=== PATIENT | female | born 1950 | race Caucasian/White ===

== ENCOUNTER 2016-07-31 15:17 | Emergency (ER) | payer MEDICARE, OTHER ==
[~2016-07-31] VITALS: Ht 157.4 cm; Wt 70.3 kg
[~2016-07-31 15:17] MED LIST: 'zithromax250 MG PO; AMBIEN5 MG PO; ASPIR LOW81 MG PO; B12,B-12,B 12500 MC1 PO; B12,B-12,B 12500 MCG PO; BACTRIM DS 8001 TA1 PO; BENADRYL50 MG PO; CARVEDILOL6.25 MG PO; DELTASONE10 MG PO; Duoneb 3ML 3 MG/3 ML INH; FLOVENT 110 M110 MCG INH; GLIPIZIDE XL5 M1 PO; GLIPIZIDE10 MG PO; GLYBURIDE2.5 MG PO; HYDR25T PO; HYDROCODONE BIT1 T11 PO; JANUVIA25 MG PO; KEFLEX500 MG PO; LIPITOR40 MG PO; LISINOPRIL2.5 MG PO; MEDROL DOSEPAK4 MG PO; METFORMIN500 MG PO; PRILOSEC40 MG PO; TROSPIUM CHLORI20 M1 PO; VICO75300 PO; VITAMIN D3400 UNIT PO; XANAX0.25 MG PO; ZOLOFT50 MG PO
[2016-07-31 15:25] VITALS: BP 124/80
[2016-07-31] MEDS ORDERED: PERCOCET 325 MG1 TA2 PO (15:27)
[2016-10-11] MEDS ORDERED: TROSPIUM CHLORI20 M1 PO (15:36)
[2016-10-11] MEDS ORDERED: POLLY-VITES1 CTB PO (15:37)
[2016-10-11] MEDS ORDERED: VRAYLAR1.5 MG PO (15:37)
[2016-10-11] MEDS ORDERED: PERCOCET 325 MG1 TA2 PO (15:39)
[2016-10-11] MEDS ORDERED: PYRIDIUM100 MG PO (16:59)
[2016-10-11] MEDS ORDERED: PERCOCET 325 MG1 TA1 PO (17:11)
== END 2016-07-31 15:30 | disposition home or self-care (01) ==
LOC: ED 15:17
DX: T22.112A Burn of first degree of left forearm, initial encounter (principal); T23.102A Burn of first degree of left hand, unspecified site, initial encounter; T23.172A Burn of first degree of left wrist, initial encounter; Z88.6 Allergy status to analgesic agent; Z79.82 Long term (current) use of aspirin; Z90.49 Acquired absence of other specified parts of digestive tract; Z90.710 Acquired absence of both cervix and uterus; X08.8XXA Exposure to other specified smoke, fire and flames, initial encounter; Y93.G3 Activity, cooking and baking; Y92.9 Unspecified place or not applicable; Y99.9 Unspecified external cause status

== ENCOUNTER 2017-06-05 23:51 | Inpatient (IN) | payer MEDICARE, OTHER ==
[~2017-06-05] VITALS: Ht 154.9 cm; Wt 91.8 kg
--- NOTE | ~2017-06-05 | EKG ---
[place], [place] ELECTROCARDIOGRAM REPORT NAME: SUDHIR BRICEÑO UNIT #: [id number] ROOM: 421 DOCTOR: AMISH POSADAS MD BIRTHDATE: [birth year] DOS: 06/07/2017 TIME: 1748 hours. Normal sinus rhythm at 78 beats per minute. An intraventricular conduction defect, most likely incomplete left bundle-branch block. Nonspecific T-wave changes in lateral leads. An abnormal ECG. No previous tracing is available for comparison. AMISH POSADAS MD CM:EKGRPT:ELECTROCARDIOGRAM REPORT [id number] AMISH POSADAS MD
--- NOTE | ~2017-06-05 | EKG ---
[place], [place] ELECTROCARDIOGRAM REPORT NAME: SUDHIR BRICEÑO UNIT #: [id number] ROOM: 421 DOCTOR: AMISH POSADAS MD BIRTHDATE: [birth year] DOS: 06/06/2017 TIME: 0018 hours. Normal sinus rhythm at 84 beats per minute. Mild left axis deviation. Incomplete left bundle-branch block. T-wave inversion in V3 to V6 is present with normal ST segments. This may be due to incomplete left bundle-branch block. No previous tracing is available for comparison. AMISH POSADAS MD CM:EKGRPT:ELECTROCARDIOGRAM REPORT [id number] 175 AMISH POSADAS MD
--- NOTE | ~2017-06-05 | PR ---
[place], [place] PROGRESS NOTE NAME: SUDHIR BRICEÑO UNIT #: [id number] ROOM: 421 DOCTOR: AMISH POSADAS MD BIRTHDATE: [birth year] DOS: 06/07/2017 SUBJECTIVE: This patient was seen by Dr. Arenas yesterday. She apparently had been shopping and all of a sudden had palpitations where her heart was racing. She became weak and dizzy and was sweating. She did not have any chest pain or shortness of breath. She waited for a while, feeling did not go away and came to the Emergency Department where she was said to be in some form of supraventricular tachycardia. I do not have any EKGs or rhythm strips from ER to determine what had happened. She was treated with IV Cardizem and converted to normal sinus rhythm and she has remained that away. One rhythm strip here shows regular tachycardia with interventricular conduction defect almost suggestive of atrial fibrillation. She had never had any palpitations previously, but had been feeling weak and tired for about a month or so ago. PHYSICAL EXAMINATION GENERAL: The patient is very pleasant, alert and oriented. She is comfortable. VITAL SIGNS: Pulse is regular at 80, blood pressure ____. NECK: JVP is normal. LUNGS: She has crackles in both lungs (she has COPD). EXTREMITIES: No edema in the lower extremities. LABORATORY DATA: Monitor shows normal sinus rhythm. An echocardiogram done yesterday showed an EF of 50%, normal chamber sizes and no valvular abnormality. IMPRESSION: This patient has supraventricular tachycardia whether this was atrial fibrillation is not clear. I do not have ECG or rhythm strip from the ER available and none are in the chart that are being tracked. She had normal coronary arteries about 3-4 years ago. She reminded me that I had done a diagnostic heart catheterization on her with selective coronary angiogram. An ECG done yesterday showed T-wave inversion in many ____ rather ECG done now showed flattened T waves. Troponin I was 0.2 or so, which I think was probably result of tachycardia, i.e., type 2 myocardial infarction rather than from conclusion of coronary artery. She was ambulated and was asymptomatic. From cardiac standpoint, she may be discharged home. I would like to see her in the office in about 2-4 weeks. [place], [place] PROGRESS NOTE NAME: SUDHIR BRICEÑO UNIT #: [id number] ROOM: 421 DOCTOR: AMISH POSADAS MD BIRTHDATE: [birth year] AMISH POSADAS MD CM:PNTRANS 175 [id number] AMISH POSADAS MD 06/08/17 0458 interface
--- NOTE | ~2017-06-05 | CON ---
[place], [place] REPORT OF CONSULTATION NAME: SUDHIR BRICEÑO UNIT #: [id number] ROOM: 421 DOCTOR: RICKY FELDERLEONEL BIRTHDATE: [birth year] DOS: 06/06/2017 HISTORY OF PRESENT ILLNESS: The patient is a 67-year-old obese female with a history of longstanding diabetes who apparently follows up with Dr. Suárez. The patient had a stress test a year and two ago and Dr. Suárez and was reported normal. Also had a heart catheterization by Dr. Morales 3 years ago and was normal. The patient came in with significant hyperglycemia and also had an episode of supraventricular tachycardia, treated with the Cardizem and she is on a Cardizem drip at 5 and patient is back into sinus rhythm. The patient denies any chest discomfort, shortness of breath, palpitations. Hemodynamically appears to be stable. The patient is staying in sinus rhythm at this point. She is very hesitant about any heart catheterization or any aggressive interventions. She has a history of longstanding diabetes, hypertension and hyperlipidemia. Right now she feels fine and she is in sinus rhythm. PAST MEDICAL HISTORY: Anxiety, depression, diabetes, fibromyalgia, obesity. SOCIAL HISTORY: Prior tobacco abuse. SURGICAL HISTORY: , carpal tunnel surgery, hysterectomy and tonsillectomy. FAMILY HISTORY: Positive for coronary artery disease. ALLERGIES: CODEINE. HOME MEDICATIONS: Aspirin, hydrochlorothiazide, lisinopril, Januvia, VESIcare, and Ambien. REVIEW OF SYSTEMS: CONSTITUTIONAL: No fever, no chills. HEENT: No visual disturbances or hearing problems. CARDIOVASCULAR: As per HPI. GASTROINTESTINAL: No nausea, no vomiting. GENITOURINARY: No dysuria, hematuria. NEUROLOGIC: Stable. PHYSICAL EXAMINATION: VITAL SIGNS: Blood pressure is 130/70. The patient is in sinus rhythm. HEENT: Unremarkable. NECK: Supple, no JVD. LUNGS: Clear. HEART: Sounds are regular. NEUROLOGIC: Stable. LABORATORY DATA: Shows sodium 139, potassium 4.3, creatinine is 1.4. Liver functions are normal. Troponins 0.089, hemoglobin 12.9, hematocrit 40.2. Chest x-ray was normal. IMPRESSION: An episode of supraventricular tachycardia, diabetes, hypertension, [place], [place] REPORT OF CONSULTATION NAME: SUDHIR BRICEÑO UNIT #: [id number] ROOM: 421 DOCTOR: LEONEL GARCÍA MD BIRTHDATE: [birth year] hyperlipidemia, renal insufficiency. RECOMMENDATIONS: Agree with the present management. Add small dose of beta blockers with metoprolol 25 b.i.d., wean off the Cardizem drip. So, we will review the echocardiogram. Continue the other medications and I will follow up. LEONEL GARCÍA MD CM:CONSTR:REPORT OF CONSULTATION 0551 06/06/17 0827 interface
[~2017-06-05 23:51] MED LIST changes: +PERCOCET 325 MG1 TA1 PO; +PERCOCET 325 MG1 TA2 PO; +POLLY-VITES1 CTB PO; +PYRIDIUM100 MG PO; +VRAYLAR1.5 MG PO
[2017-06-05 23:56] VITALS: BP 114/76
[2017-06-06] VITALS (8 sets, daily range): BP systolic 99–154; BP diastolic 54–89
[2017-06-06 00:21] LABS: HEMATOCRIT 40.2 % (37.0-47.0); HEMOGLOBIN 12.9 g/dl (12.0-16.0); MEAN CELL VOLUME 90.7 fl (81.0-99.0); MEAN CORPUSCULAR HGB 29.1 pg (27.0-31.0); MEAN CORPUSCULAR HGB CONC 32.1 g/dl (33.0-37.0); MEAN PLATELET VOLUME 11.7 fl (9.6-12.3); PLATELET COUNT AUTOMATED 324 10*3/uL (130-400); RED BLOOD COUNT 4.43 10*6/uL (4.10-5.10); RED CELL DISTRI WIDTH 13.3 % (0-14.5); WHITE BLOOD COUNT 17.4 10*3/uL (4.8-10.8)
[2017-06-06 00:38] LABS: PLATELET SUFFICIENCY NORMAL (NORMAL); TOTAL CELLS COUNTED 100 #CELLS
[2017-06-06 00:40] LABS: ALBUMIN 3.5 gm/dl (3.1-4.5); CREATININE 1.4 mg/dL (0.55-1.02); POTASSIUM 4.3 mmol/L (3.5-5.1); TOTAL PROTEIN 6.7 gm/dL (6.4-8.2)
[2017-06-06 00:41] LABS: TROPONIN I 0.037 ng/ml (<0.045)
[2017-06-06 00:47] LABS: THYROID STIM HORMONE (HS) 1.63 uIU/ml (0.358-4.75)
--- NOTE | 2017-06-06 02:00 | NUR ---
A 67, admitted to 4E, under the services of DAISY Giraldo DO with a diagnosis of . Chief complaint is SUSTAINED SVT. Patient arrived via ambulance from ER. Monitor applied. Initial assessment completed. Vital signs taken and recorded. DAISY GIRALDO DO notified of admission to the unit. Orders received. See assessment for past medical history, medications and allergies. Patient and/or family oriented to unit. visitation policy reviewed. Clothing/patient valuable form completed. PRAKASH GORDON L
[2017-06-06] MEDS ORDERED: VESICARE10 MG PO (02:21)
[2017-06-06] MEDS ORDERED: HYDROXYZINE PAM25 MG PO (02:23)
[2017-06-06] MEDS ORDERED: CYMBALTA20 M1 PO (02:25)
--- NOTE | 2017-06-06 02:28 | NUR ---
MED REC UP TO DATE WITH PT MEDICATION BOTTLES BROUGHT IN FROM HOME. MEDS SENT TO PHARMACY
--- NOTE | 2017-06-06 02:45 | NUR ---
RESIDENT NOTIFIED OF CRITICAL LACTIC ACID, ALSO NOTIFIED THAT MED REQ UPDATED
--- NOTE | 2017-06-06 03:40 | NUR ---
CALL PLACED TO DR POSADAS PER DR KENNEY REQUEST, SPOKE WITH KATHARINA R/T CARDIZEM DRIP AND IF HE WOULD LIKE PT TO BE PLACED ON DRIP ORDERED IN ER, UPDATED DR POSADAS ON PTS CONDITION ALSO NOTIFIED THAT PT IS AND HAS BEEN IN NSR SINCE BOLUS OF CARDIZEM IN ER, NEW ORDER TO RUN CARDIZEM 5MG/HR AND TO HAVE A ECHO SCHEDULED WELL
--- NOTE | 2017-06-06 03:43 | NUR ---
NOTIFIED DR.A CHRISTIANSEN OF ELEVATED TROPININ LEVEL
--- NOTE | 2017-06-06 05:12 | NUR ---
LAB CALLED CRITICAL LACTIC ACID 2.[address] AZUL AWARE. NO NEW ORDERS RECEIVED
[2017-06-06 05:39] LABS: ALBUMIN 3.3 gm/dl (3.1-4.5); ALKALINE PHOSPHATASE 65 U/L (45-117); BUN 27 mg/dl (7-24); CHLORIDE 103 mmol/L (98-107); CHOLESTEROL 206 mg/dL (<200); CREATININE 0.87 mg/dL (0.55-1.02); FREE T4 1.05 ng/dl (0.76-1.46); HDL CHOLESTEROL 40 mg/dl (40-60); LDL CHOLESTEROL 126 mg/dL (9-159); PHOSPHOROUS 4.1 mg/dL (2.5-4.9); POTASSIUM 3.7 mmol/L (3.5-5.1); SGOT/AST 56 IU/L (3-35); SGPT/ALT 51 U/L (12-78); SODIUM 138 mmol/L (136-145); TOTAL PROTEIN 6.4 gm/dL (6.4-8.2); TRIGLYCERIDES 200 mg/dl (<150); VLDL CHOLESTEROL 40 mg/dL (6-40)
--- NOTE | 2017-06-06 05:59 | NUR ---
DR. TOMPKINS IN TO SEE PT AT THIS TIME STATES TO START PT ON METOPROLOL 25MG PO BID AND TO START WEANING PT OFF CARDIZEM HALEY
[2017-06-06 06:04] LABS: BASO # 0.1 10*3/uL (0.0-0.1); BASO % 0.5 % (0.0-1.0); EOS % 0.3 % (1.0-4.0); HEMATOCRIT 37.9 % (37.0-47.0); HEMOGLOBIN 12.3 g/dl (12.0-16.0); LYMPH # 2.6 10*3/uL (1.3-4.4); LYMPH % 18.7 % (27.0-41.0); MEAN CELL VOLUME 89.2 fl (81.0-99.0); MEAN CORPUSCULAR HGB 28.9 pg (27.0-31.0); MEAN CORPUSCULAR HGB CONC 32.5 g/dl (33.0-37.0); MEAN PLATELET VOLUME 12.4 fl (9.6-12.3); MONO # 0.9 10*3/uL (0.1-1.0); MONO % 6.6 % (3.0-9.0); NEUT # 10.2 10*3/uL (2.3-7.9); NEUT % 72.6 % (47.0-73.0); PLATELET COUNT AUTOMATED 293 10*3/uL (130-400); RED BLOOD COUNT 4.25 10*6/uL (4.10-5.10); RED CELL DISTRI WIDTH 13.7 % (0-14.5)
[2017-06-06 06:13] LABS: ACT PARTIAL THROMBO TIME 21.9 SECONDS (20.8-31.5)
[2017-06-06 06:33] LABS: VITAMIN D, 25-HYDROXY 20.1 ng/mL (30-100)
--- NOTE | 2017-06-06 06:36 | NUR ---
CALL PLACED TO DR TOMPKINS R/T PT TROPONIN LEVELS, NO NEW ORDERS AT THIS TIME
--- NOTE | 2017-06-06 10:30 | NUR ---
DR GARCÍA CALLED TO REPORT CRITICAL TROPONIN OF 0.[address] STATED HE WOULD LET DR POSADAS KNOW.
--- NOTE | 2017-06-06 10:32 | NUR ---
CARDIZEM DRIP DISCONTINUED PER DR GARCÍA.
[2017-06-06 14:06] LABS: BILIRUBIN NEGATIVE (NEGATIVE); BLOOD TRACE-INTACT (NEGATIVE); CLARITY SL CLOUDY (CLEAR); COLOR YELLOW (YELLOW); GLUCOSE NEGATIVE (NEGATIVE); KETONE NEGATIVE (NEGATIVE); LEUKO ESTERASE 1+ (NEGATIVE); NITRITE POSITIVE (NEGATIVE); SPECIFIC GRAVITY 1.025 (1.005-1.030); UROBILINOGEN 0.2 E.U./dl (0.2-1.0)
--- NOTE | 2017-06-06 14:21 | NUR ---
ATTEMPTED TO CALL DR POSADAS WITH CRITICAL TROPONIN. BOTH ANSWERING SERVICE AND CELL PHONE CALLED, NO ANSWER . LEVEL IS IMPROVING , WILL ATTEMPT TO CALL AGAIN SHORTLY.
[2017-06-06 14:24] LABS: BACTERIA 2+; WBC TNTC wbc/hpf (0-5)
--- NOTE | 2017-06-06 19:30 | NUR ---
PA REPORTED TO RN THAT PT HAD O2 OFF AND SPO2 ON RA WAS 79%. O2 PLACED BACK ON PT, SPO2 94% ON 3LPM VIA NC. PT ADMITS THAT SHE REMOVES O2 AT WILL. RN PROVIDED EXTENSION TUBING AND ENCOURAGED PT TO LEAVE O2 ON. PT VOICED UNDERSTANDING.
[2017-06-07] VITALS: BP 101/77
[2017-06-07 08:00] VITALS: BP 142/78
--- NOTE | 2017-06-07 08:20 | NUR ---
PT SITTING UP AT SIDE OF BED EATING BREAKFAST. PT DENIES ANY COMPLAINTS, STATES SHE IS READY TO GO HOME, EXPLAINED WE HAVE TO WAIT TO HEAR FROM THE DOCTOR. PT VOICED UNDERSTANDING. PT IN NO DISTRESS, O2 MAINTAINED AT 2L NC, NO SOB NOTED, LUNGS DIMINISHED. PT DENIES ANY PAIN. CALL LIGHT WITHIN REACH.
--- NOTE | 2017-06-07 09:00 | NUR ---
Polishing Pad Mounter in to talk to patient. Patient states lives at home with alone. There are few steps in the home. Physician: alex rizo Pharmacy: Home health services: none Patient's level of ADLs: INDEPENDENT Patient has working utilities: all working DME: home oxygen and portable tanks from [facility] Follow-up physician's appointment after d/c: will be made by hospitalist nurse director upon discharge Does patient want to access PORTAL?: no Discharge plan discussed with patient, patient lives at home alone, states she is independent in adls and ambulation, patient states she will be going back home and denies any home needs, case management will follow. TESFAYE CHANDLER
--- NOTE | 2017-06-07 10:44 | NUR ---
SOAKING PIT OPERATOR REMOVED AT THIS TIME PER ORDER.
[2017-06-07 12:00] VITALS: BP 125/62
--- NOTE | 2017-06-07 12:37 | NUR ---
DR CORTES NOTIFIED OF URINE CULTURE POSITIVE FOR HEAVY GNB AND PT NOT CURRENTLY ON ANY ANTIBIOTICS.
[2017-06-07 16:00] VITALS: BP 126/62
--- NOTE | 2017-06-07 17:57 | NUR ---
DR POSADAS HERE TO SEE PT, STAT EKG ORDERED AT THIS TIME. ORDERED TO WALK PT IN [place] TO SEE HOW SHE DOES, WALKED PT UP [place], STATES SHE FELT OK JUST TIRED AND MINIMALLY SOB. DR POSADAS UPDATED. STATES FROM HIS STANDPOINT SHE COULD GO HOME, HE UPDATED DR CORTES.
--- NOTE | 2017-06-07 19:20 | NUR ---
PT CALLED ME INTO ROOM AT THIS TIME ASKING WHERE DR POSADAS WAS, EXPLAINED TO HER THAT HE WAS FINISHING HIS ROUNDS. PT ASKING WHY HE DIDN'T TELL HER ANYTHING, EXPLAINED TO HER THAT I'M SURE IT WAS JUST AN OVERSIGHT BUT HE DID SPEAK WITH HER ATTENDING AND UPDATED THEM ON HER CARE. STATING FROM HIS STANDPOINT SHE IS OK FOR DISCHARGE. PT UPSET STATING SHE WANTS TO LEAVE. EXPLAINED TO HER THAT THE PLAN IS FOR HER TO BE DISCHARGED. PT SETTLED DOWN AT THIS TIME AND AGREES TO STAY, BUT STATES SHE DOES WANT TO SPEAK WITH SOMEONE REGARDING THIS. NURSING USER EXPERIENCE ARCHITECT NOTIFIED.
[2017-06-07 20:00] VITALS: BP 143/73
--- NOTE | 2017-06-07 20:00 | NUR ---
PATIENT ANXIOUS AND TEARFUL C/O DR. POSADAS NOT RETURNING TO DISCUSS PLAN OF CARE PRIOR TO COMPLETING ROUNDS. NURSING FIRE OBSERVER EVANGELINA INIGUEZ, ROSEMARIE PERSAUD RN, AND MYSELF AT BEDSIDE PROVIDING ROUTINE NURSING COMFORT. PATIENT AGREES TO STAY FOR THE NIGHT AND ASKING ABOUT BEING DISCHARGED EARLY TOMORROW. PATIENT INFORMED HOSPITALIST WILL BE DOING ROUNDS AND WILL SEE PATIENT IN THE MORNING, PATIENT VERBALIZES UNDERSTANDING AND STATES FEELING MUCH BETTER AFTER VENTING. PATIENT ENCOURAGED TO CALL FOR ADDITIONAL ASSISTANCE. PRAKASH LARA RN
[2017-06-08] VITALS: BP 134/77
[2017-06-08 04:00] VITALS: BP 130/78
[2017-06-08 06:11] LABS: BASO # 0.1 10*3/uL (0.0-0.1); BASO % 0.6 % (0.0-1.0); EOS # 0.2 10*3/uL (0.0-0.4); EOS % 2.3 % (1.0-4.0); HEMATOCRIT 35.7 % (37.0-47.0); HEMOGLOBIN 11.5 g/dl (12.0-16.0); LYMPH # 3.2 10*3/uL (1.3-4.4); LYMPH % 34.6 % (27.0-41.0); MEAN CORPUSCULAR HGB 28.7 pg (27.0-31.0); MEAN CORPUSCULAR HGB CONC 32.2 g/dl (33.0-37.0); MONO # 0.7 10*3/uL (0.1-1.0); MONO % 7.7 % (3.0-9.0); NEUT % 53.8 % (47.0-73.0); PLATELET COUNT AUTOMATED 249 10*3/uL (130-400); RED BLOOD COUNT 4.01 10*6/uL (4.10-5.10); RED CELL DISTRI WIDTH 13.2 % (0-14.5); WHITE BLOOD COUNT 9.3 10*3/uL (4.8-10.8)
[2017-06-08 06:27] LABS: BUN 17 mg/dl (7-24); CHLORIDE 100 mmol/L (98-107); CREATININE 0.62 mg/dL (0.55-1.02); POTASSIUM 3.8 mmol/L (3.5-5.1); SODIUM 141 mmol/L (136-145)
[2017-06-08 08:00] VITALS: BP 156/74
--- NOTE | 2017-06-08 09:00 | NUR ---
case management visits with patient, patient states she is going home, discussed with her VNA and she refused any home services
[2017-06-08] MEDS ORDERED: LOPRESSOR25 MG PO (10:09)
[2017-06-08] MEDS ORDERED: SEPTDS PO (10:10)
--- NOTE | 2017-06-08 12:03 | NUR ---
Discharge instructions reviewed with patient/family. Patient receptive and verbalizes understanding. Follow-up care arranged. Written instructions given to patient/family. TAMERA DE LA ROSA
== END 2017-06-08 12:03 | disposition home or self-care (01) | DRG 308 ==
LOC: ED 23:51 → 4E 06-06 01:36
PROVIDERS: Emergency Medicine Emergency Medical Services; Internal Medicine; ADMIT Internal Medicine
DX: I47.1 Supraventricular tachycardia (principal); N17.0 Acute kidney failure with tubular necrosis; J96.11 Chronic respiratory failure with hypoxia; R65.10 Systemic inflammatory response syndrome (SIRS) of non-infectious origin without acute organ dysfunction; Z99.81 Dependence on supplemental oxygen; F03.90 Unspecified dementia, unspecified severity, without behavioral disturbance, psychotic disturbance, mood disturbance, and anxiety; N39.0 Urinary tract infection, site not specified; J43.9 Emphysema, unspecified; F41.9 Anxiety disorder, unspecified; F32.9 Major depressive disorder, single episode, unspecified; E78.5 Hyperlipidemia, unspecified; I10 Essential (primary) hypertension; Z96.653 Presence of artificial knee joint, bilateral; R74.8 Abnormal levels of other serum enzymes; R74.0 Nonspecific elevation of levels of transaminase and lactic acid dehydrogenase [LDH]; M79.7 Fibromyalgia; K27.9 Peptic ulcer, site unspecified, unspecified as acute or chronic, without hemorrhage or perforation; R32 Unspecified urinary incontinence; E53.8 Deficiency of other specified B group vitamins; D64.9 Anemia, unspecified; G47.00 Insomnia, unspecified; E66.09 Other obesity due to excess calories; E55.9 Vitamin D deficiency, unspecified; K21.9 Gastro-esophageal reflux disease without esophagitis; Z82.3 Family history of stroke; Z80.9 Family history of malignant neoplasm, unspecified; Z82.49 Family history of ischemic heart disease and other diseases of the circulatory system; Z88.8 Allergy status to other drugs, medicaments and biological substances; Z68.34 Body mass index [BMI] 34.0-34.9, adult; Z88.6 Allergy status to analgesic agent; Z79.899 Other long term (current) drug therapy; Z83.3 Family history of diabetes mellitus; Z87.891 Personal history of nicotine dependence; Z90.49 Acquired absence of other specified parts of digestive tract; Z90.710 Acquired absence of both cervix and uterus; E11.65 Type 2 diabetes mellitus with hyperglycemia; Z79.84 Long term (current) use of oral hypoglycemic drugs

== ENCOUNTER 2017-08-14 15:10 | Inpatient (IN) | payer MEDICARE, OTHER ==
[~2017-08-14] VITALS: Ht 154.9 cm; Wt 86.7 kg
--- NOTE | ~2017-08-14 | CON ---
[place], [place] REPORT OF CONSULTATION NAME: SUDHIR BRICEÑO UNIT #: [id number] ROOM: 401 DOCTOR: LEONEL GARCÍA MD BIRTHDATE: [birth year] DOS: 08/15/2017 ADDENDUM I just did the consultation. I was given wrong information that the patient had renal transplant and also bypass. Unfortunately, she did not have that. I examined the patient and I discussed with her in detail. She had two heart catheterizations showed minimal coronary artery disease. She had a stress test done in May, which was basically normal. So, the recommendations would be to increase the metoprolol to 50 b.i.d. Continue the other medications. Monitor the heart rate and blood pressure closely. She has suggestion of early sick sinus syndrome and I will closely followup. As mentioned, she did not have bypass surgery. She had two heart catheterizations with minimal disease. LEONEL GARCÍA MD CM:CONSTR:REPORT OF CONSULTATION 0757 08/15/17 0824 interface
--- NOTE | ~2017-08-14 | CON ---
[place], [place] REPORT OF CONSULTATION NAME: SUDHIR BRICEÑO UNIT #: [id number] ROOM: 401 DOCTOR: LEONEL GARCÍA MD BIRTHDATE: [birth year] DOS: 08/15/2017 REASON FOR CONSULTATION: Supraventricular tachycardia. HISTORY OF PRESENT ILLNESS: The patient is very well known to me. A 67-year-old female with sick sinus syndrome, paroxysmal atrial fibrillation, admitted with significant palpitation, was found to be in SVT, was given Adenocard and the patient back into sinus rhythm. The patient has a history of paroxysmal atrial fibrillation and she was in sinus rhythm with the medications. She has been by electrophysiology also in the past because of the sick sinus syndrome. PAST MEDICAL HISTORY: Significant for coronary artery disease, COPD, sick sinus syndrome, gastroesophageal reflux disease, peptic ulcer disease, tobacco abuse. PAST SURGICAL HISTORY: Knee replacement, cardiac catheterization, tonsillectomy, and hysterectomy. SOCIAL HISTORY: Does not drink or use any drugs. Former smoker. FAMILY HISTORY: Positive for coronary artery disease. ALLERGIES: HYDROCODONE AND CODEINE. HOME MEDICATIONS: Aspirin, lisinopril, metformin, metoprolol, and omeprazole. REVIEW OF SYSTEMS: CONSTITUTIONAL: No fever, no chills. HEENT: No visual disturbances or hearing problems. CARDIOVASCULAR: As per HPI. GASTROINTESTINAL: No nausea, no vomiting. GENITOURINARY: No dysuria or hematuria. NEUROLOGICALLY: Stable. PHYSICAL EXAMINATION: VITAL SIGNS: Blood pressure is 128/97, pulse is 96. NECK: Supple, no JVD. LUNGS: Diminished breath sounds. HEART: Sounds are regular, slightly tachycardic. NEUROLOGIC: Stable. LABORATORY DATA: Sodium 134, potassium 4.1, BUN and creatinine 10 and 1.1. Hemoglobin 13.5, hematocrit 42.1. EKG sinus tachycardia with nonspecific ST-T changes. IMPRESSION: Supraventricular tachycardia, sick sinus syndrome, diabetes, hypertension, hyperlipidemia, coronary artery disease. RECOMMENDATIONS: Increase the beta blockers to 50 b.i.d. Monitor the heart rate very closely. Continue the other medications as ordered. Continue all [place], [place] REPORT OF CONSULTATION NAME: SUDHIR BRICEÑO UNIT #: [id number] ROOM: 401 DOCTOR: RICKY FELDER,LEONEL BIRTHDATE: [birth year] other home medications. The patient monitors the pressure also and I will follow up. ADDENDUM I just did the consultation. I was given wrong information that the patient had renal transplant and also bypass. Unfortunately, she did not have that. I examined the patient and I discussed with her in detail. She had two heart catheterizations showed minimal coronary artery disease. She had a stress test done in May, which was basically normal. So, the recommendations would be to increase the metoprolol to 50 b.i.d. Continue the other medications. Monitor the heart rate and blood pressure closely. She has suggestion of early sick sinus syndrome and I will closely followup. As mentioned, she did not have bypass surgery. She had two heart catheterizations with minimal disease. LEONEL GARCÍA MD CM:CONSTR:REPORT OF CONSULTATION 0738 08/15/17 0941 interface
[~2017-08-14 15:10] MED LIST changes: +CYMBALTA20 M1 PO; +HYDROXYZINE PAM25 MG PO; +LOPRESSOR25 MG PO; +SEPTDS PO; +VESICARE10 MG PO
[2017-08-14 15:15] VITALS: BP 116/58
[2017-08-14 15:20] VITALS: BP 116/58
[2017-08-14 15:39] LABS: BASO # 0.1 10*3/uL (0.0-0.1); BASO % 0.4 % (0.0-1.0); EOS # 0.1 10*3/uL (0.0-0.4); EOS % 0.4 % (1.0-4.0); HEMATOCRIT 42.1 % (37.0-47.0); HEMOGLOBIN 13.5 g/dl (12.0-16.0); LYMPH # 0.7 10*3/uL (1.3-4.4); LYMPH % 5.4 % (27.0-41.0); MEAN CELL VOLUME 89.2 fl (81.0-99.0); MEAN CORPUSCULAR HGB 28.6 pg (27.0-31.0); MEAN CORPUSCULAR HGB CONC 32.1 g/dl (33.0-37.0); MEAN PLATELET VOLUME 11.8 fl (9.6-12.3); MONO # 0.5 10*3/uL (0.1-1.0); MONO % 4.1 % (3.0-9.0); NEUT # 11.3 10*3/uL (2.3-7.9); NEUT % 88.9 % (47.0-73.0); PLATELET COUNT AUTOMATED 273 10*3/uL (130-400); RED BLOOD COUNT 4.72 10*6/uL (4.10-5.10); RED CELL DISTRI WIDTH 13.2 % (0-14.5); WHITE BLOOD COUNT 12.7 10*3/uL (4.8-10.8)
[2017-08-14 15:46] VITALS: BP 122/65
[2017-08-14 15:48] LABS: ACT PARTIAL THROMBO TIME 27.1 SECONDS (20.8-31.5)
[2017-08-14 15:56] LABS: ALBUMIN 3.4 gm/dl (3.1-4.5); ALKALINE PHOSPHATASE 101 U/L (45-117); BUN 10 mg/dl (7-24); CHLORIDE 97 mmol/L (98-107); CREATININE 1.14 mg/dL (0.55-1.02); POTASSIUM 4.1 mmol/L (3.5-5.1); SGOT/AST 67 IU/L (3-35); SGPT/ALT 61 U/L (12-78); SODIUM 134 mmol/L (136-145)
[2017-08-14 15:59] LABS: TROPONIN I < 0.015 ng/ml (<0.045)
[2017-08-14 16:01] VITALS: BP 125/61
[2017-08-14 16:37] VITALS: BP 128/57
[2017-08-14 20:00] VITALS: BP 135/68
[2017-08-15] VITALS: BP 137/54
[2017-08-15 07:27] LABS: BASO % 0.6 % (0.0-1.0); EOS % 0.1 % (1.0-4.0); HEMOGLOBIN 12.2 g/dl (12.0-16.0); LYMPH % 14.5 % (27.0-41.0); MEAN CELL VOLUME 90.3 fl (81.0-99.0); MEAN CORPUSCULAR HGB CONC 32.1 g/dl (33.0-37.0); MEAN PLATELET VOLUME 11.6 fl (9.6-12.3); MONO # 0.7 10*3/uL (0.1-1.0); MONO % 10.9 % (3.0-9.0); NEUT # 4.9 10*3/uL (2.3-7.9); NEUT % 73.5 % (47.0-73.0); PLATELET COUNT AUTOMATED 227 10*3/uL (130-400); RED BLOOD COUNT 4.21 10*6/uL (4.10-5.10); RED CELL DISTRI WIDTH 13.6 % (0-14.5); WHITE BLOOD COUNT 6.7 10*3/uL (4.8-10.8)
[2017-08-15 07:57] LABS: BUN 11 mg/dl (7-24); CHLORIDE 103 mmol/L (98-107); POTASSIUM 3.8 mmol/L (3.5-5.1); SGOT/AST 80 IU/L (3-35); SGPT/ALT 70 U/L (12-78); SODIUM 140 mmol/L (136-145)
[2017-08-15 08:00] VITALS: BP 149/65
[2017-08-15 08:05] LABS: ALKALINE PHOSPHATASE 75 U/L (45-117); CHOLESTEROL 98 mg/dL (<200); CREATININE 0.58 mg/dL (0.55-1.02); FREE T4 1.27 ng/dl (0.76-1.46); HDL CHOLESTEROL 45 mg/dl (40-60); LDL CHOLESTEROL 36 mg/dL (9-159); PHOSPHOROUS 2.7 mg/dL (2.5-4.9); THYROID STIM HORMONE (HS) 0.628 uIU/ml (0.358-4.75); TOTAL PROTEIN 6.2 gm/dL (6.4-8.2); TRIGLYCERIDES 83 mg/dl (<150); VLDL CHOLESTEROL 17 mg/dL (6-40)
[2017-08-15 08:19] LABS: VITAMIN D, 25-HYDROXY 16.3 ng/mL (30-100)
[2017-08-15 12:00] VITALS: BP 129/48
[2017-08-15 16:00] VITALS: BP 128/59
[2017-08-15 20:00] VITALS: BP 112/52
[2017-08-16] VITALS: BP 140/67
[2017-08-16 08:00] VITALS: BP 114/70
[2017-08-16] MEDS ORDERED: METOPROLOL TART50 M1 PO (09:10)
== END 2017-08-16 12:29 | disposition home or self-care (01) | DRG 309 ==
LOC: ED 15:10 → 4E 15:33 → EDHOLD 15:33 → 4E 16:09
PROVIDERS: Registered Nurse; Student in an Organized Health Care Education/Training Program
DX: I47.1 Supraventricular tachycardia (principal); E87.2 Acidosis; E44.0 Moderate protein-calorie malnutrition; J96.10 Chronic respiratory failure, unspecified whether with hypoxia or hypercapnia; I49.5 Sick sinus syndrome; I48.0 Paroxysmal atrial fibrillation; Z99.81 Dependence on supplemental oxygen; E11.9 Type 2 diabetes mellitus without complications; E55.9 Vitamin D deficiency, unspecified; F03.90 Unspecified dementia, unspecified severity, without behavioral disturbance, psychotic disturbance, mood disturbance, and anxiety; I10 Essential (primary) hypertension; R74.0 Nonspecific elevation of levels of transaminase and lactic acid dehydrogenase [LDH]; F41.9 Anxiety disorder, unspecified; K21.9 Gastro-esophageal reflux disease without esophagitis; Z96.653 Presence of artificial knee joint, bilateral; J44.9 Chronic obstructive pulmonary disease, unspecified; F32.9 Major depressive disorder, single episode, unspecified; E78.5 Hyperlipidemia, unspecified; K57.90 Diverticulosis of intestine, part unspecified, without perforation or abscess without bleeding; M79.7 Fibromyalgia; E66.9 Obesity, unspecified; G47.00 Insomnia, unspecified; I25.10 Atherosclerotic heart disease of native coronary artery without angina pectoris; Z87.11 Personal history of peptic ulcer disease; Z90.710 Acquired absence of both cervix and uterus; Z90.49 Acquired absence of other specified parts of digestive tract; Z83.3 Family history of diabetes mellitus; Z80.9 Family history of malignant neoplasm, unspecified; Z82.3 Family history of stroke; Z79.84 Long term (current) use of oral hypoglycemic drugs; Z79.899 Other long term (current) drug therapy; Z79.82 Long term (current) use of aspirin; Z88.5 Allergy status to narcotic agent; Z88.8 Allergy status to other drugs, medicaments and biological substances; Z82.49 Family history of ischemic heart disease and other diseases of the circulatory system; Z72.89 Other problems related to lifestyle; Z79.01 Long term (current) use of anticoagulants; Z87.19 Personal history of other diseases of the digestive system; Z68.36 Body mass index [BMI] 36.0-36.9, adult

== ENCOUNTER → 2018-08-14 | Outpatient (CLI) | payer MEDICARE, OTHER ==
[~2018-08-14] MED LIST changes: +AMINOPHYLLIN200 MG PO; +JANUVIA50 MG PO; +MEMANTINE HCL5 MG PO; +METFORMIN HYDR500 MG PO; +METOPROLOL TART50 M1 PO; +SERTRALINE HYDR50 MG PO
== END | disposition home or self-care (01) ==
LOC: CT 14:56
DX: K57.30 Diverticulosis of large intestine without perforation or abscess without bleeding (principal); K76.0 Fatty (change of) liver, not elsewhere classified

== ENCOUNTER → 2018-11-23 | Day surgery (SDC) | payer MEDICARE, OTHER ==
[~2018-11-23] VITALS: Ht 154.9 cm; Wt 86.6 kg
--- NOTE | ~2018-11-23 | PROC NOTE ---
[place], [place] PROCEDURE NOTE NAME: SUDHIR BRICEÑO UNIT #: [id number] ROOM: DOCTOR: BELINDA SARGENT MD BIRTHDATE: [birth year] DOS: PROCEDURES: 1. Esophagogastroduodenoscopy and biopsy. 2. Colonoscopy. INDICATION: GERD and change in bowel habits. An informed consent was obtained from the patient after indication of procedures, alternatives and potential complications were explained to her. PROCEDURE MEDICATION: Sedation was administered by Anesthesiology Department. Scope used was Olympus pediatric colonoscope variable stiffness GIF-180, depth of insertion with upper endoscopy was to the descending duodenum and with the colonoscopy was to the cecum, which was identified by the usual landmarks, appendiceal orifice, ileocecal valve and triangular fold, in addition to transillumination in the right lower quadrant. FINDINGS: After adequate sedation, the patient was placed in left lateral decubitus position. Upper endoscopy was performed first. Scope was introduced under direct visualization through the upper esophageal sphincter into the esophagus. Esophageal mucosa appeared normal with no ulcerations or strictures. Lower esophageal sphincter was identified at 36 cm from incisors with normal appearing Z line. Stomach was then intubated and the gastric mucosa inspected. Moderate gastritis was seen with no discrete ulcers or active bleeding. A DIANA test was performed from gastric antrum and body. Retroflexed views of the fundus showed a grade 1 hiatal hernia. The pylorus was intubated easily. The duodenal bulb and descending duodenum were within normal range. Scope was then withdrawn after the stomach was decompressed. We then proceeded with the colonoscopy. Rectal examination showed a normal sphincter tone and no external hemorrhoids. Scope was introduced into the rectum, then advanced to the cecum with some difficulty due to looping in the left colon and the presence of fixed sigmoid loops. The prep was suboptimal in the left colon. We were able to visualize approximately 80% mucosa. Moderate left-sided diverticular disease was seen in addition to scattered diverticula in the ascending colon with no evidence of acute diverticulitis or diverticular hemorrhage. The remaining colon mucosa appeared otherwise normal with no polyps or obstructing lesion seen. Retroflexed views in the rectum showed grade 1 internal hemorrhoids. The scope was then withdrawn after the rectum was decompressed. The patient tolerated the procedures well. IMPRESSION: 1. Small hiatal hernia. 2. Gastritis, DIANA test performed. 3. Moderate left-sided diverticular disease. 4. Internal hemorrhoids. 5. Normal colon mucosa otherwise with no polyp seen; however, the prep was suboptimal in the left colon. [place], [place] PROCEDURE NOTE NAME: SUDHIR BRICEÑO UNIT #: [id number] ROOM: DOCTOR: ROSETTA FELDER,BELINDA BIRTHDATE: [birth year] PLAN: We will review the CLOtest results, treat the patient accordingly. Office followup will be scheduled in 2-3 weeks. Repeat screening colonoscopy is recommended in 5 years. BELINDA SARGENT MD CM:PROCNOTE:PROCEDURE NOTE 0809 [id number] SHANNAN SARGENT MD
[2018-11-23 07:10] VITALS: BP 155/62
[2018-11-23 08:16] VITALS: BP 165/64
[2018-11-23 08:31] VITALS: BP 153/68
[2018-11-23 08:45] VITALS: BP 164/73
== END | disposition home or self-care (01) ==
LOC: SDC 10-08 08:45
DX: K64.8 Other hemorrhoids (principal); K57.30 Diverticulosis of large intestine without perforation or abscess without bleeding; K29.70 Gastritis, unspecified, without bleeding; K44.9 Diaphragmatic hernia without obstruction or gangrene; I10 Essential (primary) hypertension; E11.9 Type 2 diabetes mellitus without complications; F41.9 Anxiety disorder, unspecified; F32.9 Major depressive disorder, single episode, unspecified; J43.9 Emphysema, unspecified; M19.90 Unspecified osteoarthritis, unspecified site; Z88.5 Allergy status to narcotic agent; Z88.8 Allergy status to other drugs, medicaments and biological substances; Z79.84 Long term (current) use of oral hypoglycemic drugs; Z79.899 Other long term (current) drug therapy; Z98.890 Other specified postprocedural states; Z90.49 Acquired absence of other specified parts of digestive tract; Z90.710 Acquired absence of both cervix and uterus; Z96.653 Presence of artificial knee joint, bilateral; Z83.3 Family history of diabetes mellitus; Z82.49 Family history of ischemic heart disease and other diseases of the circulatory system

== ENCOUNTER 2019-07-28 23:01 | Emergency (ER) | payer MEDICARE, OTHER ==
[~2019-07-28] VITALS: Ht 157.4 cm; Wt 83.9 kg
[2019-07-28 23:20] VITALS: BP 154/62
[2019-07-28 23:34] LABS: BASO # 0.1 10*3/uL (0.0-0.1); BASO % 0.6 % (0.0-1.0); EOS # 0.3 10*3/uL (0.0-0.4); EOS % 2.5 % (1.0-4.0); HEMATOCRIT 39.2 % (37.0-47.0); HEMOGLOBIN 12.2 g/dl (12.0-16.0); LYMPH # 1.9 10*3/uL (1.3-4.4); LYMPH % 19.2 % (27.0-41.0); MEAN CELL VOLUME 92.9 fl (81.0-99.0); MEAN CORPUSCULAR HGB 28.9 pg (27.0-31.0); MEAN CORPUSCULAR HGB CONC 31.1 g/dl (33.0-37.0); MEAN PLATELET VOLUME 11.8 fl (9.6-12.3); MONO # 0.7 10*3/uL (0.1-1.0); MONO % 7.2 % (3.0-9.0); NEUT # 6.9 10*3/uL (2.3-7.9); NEUT % 69.8 % (47.0-73.0); PLATELET COUNT AUTOMATED 268 10*3/uL (130-400); RED BLOOD COUNT 4.22 10*6/uL (4.10-5.10); RED CELL DISTRI WIDTH 13.4 % (0-14.5); WHITE BLOOD COUNT 9.8 10*3/uL (4.8-10.8)
[2019-07-28 23:45] LABS: ACT PARTIAL THROMBO TIME 24.3 SECONDS (20.0-32.1); INTERNATIONAL NORM RATIO 0.9 (2.0-3.5)
[2019-07-28 23:52] LABS: ALBUMIN 3.5 gm/dl (3.1-4.5); ALKALINE PHOSPHATASE 73 U/L (45-117); BUN 12 mg/dl (7-24); CHLORIDE 106 mmol/L (98-107); CREATININE 0.62 mg/dL (0.55-1.02); POTASSIUM 3.6 mmol/L (3.5-5.1); SGOT/AST 18 IU/L (3-35); SGPT/ALT 33 U/L (12-78); SODIUM 141 mmol/L (136-145); TOTAL PROTEIN 6.8 gm/dL (6.4-8.2)
[2019-07-28 23:54] LABS: TROPONIN I < 0.015 ng/ml (<0.045)
[2019-07-29] MEDS ORDERED: MEDROL DOSEPAK4 MG PO (00:32)
== END 2019-07-29 01:07 | disposition home or self-care (01) ==
LOC: ED 23:01
PROVIDERS: Emergency Medicine
DX: J20.9 Acute bronchitis, unspecified (principal); J44.1 Chronic obstructive pulmonary disease with (acute) exacerbation; E11.9 Type 2 diabetes mellitus without complications; K21.9 Gastro-esophageal reflux disease without esophagitis; E66.9 Obesity, unspecified; I10 Essential (primary) hypertension; M79.7 Fibromyalgia; Z87.891 Personal history of nicotine dependence; Z88.6 Allergy status to analgesic agent; Z88.8 Allergy status to other drugs, medicaments and biological substances; Z88.2 Allergy status to sulfonamides; Z79.899 Other long term (current) drug therapy

== ENCOUNTER 2020-03-16 03:25 | Inpatient (IN) | payer MEDICARE, OTHER ==
[2020-03-16] VITALS (7 sets, daily range): BP systolic 104–141; BP diastolic 56–79
[~2020-03-16] VITALS: Ht 167.6 cm; Wt 90.3 kg
[2020-03-16 03:42] LABS: BASO # 0.1 10*3/uL (0.0-0.1); BASO % 0.6 % (0.0-1.0); EOS # 0.3 10*3/uL (0.0-0.4); EOS % 1.8 % (1.0-4.0); HEMATOCRIT 40.9 % (37.0-47.0); LYMPH # 2.8 10*3/uL (1.3-4.4); LYMPH % 20.2 % (27.0-41.0); MEAN CELL VOLUME 88.7 fl (81.0-99.0); MEAN CORPUSCULAR HGB 27.8 pg (27.0-31.0); MEAN CORPUSCULAR HGB CONC 31.3 g/dl (33.0-37.0); MEAN PLATELET VOLUME 11.6 fl (9.6-12.3); MONO # 0.8 10*3/uL (0.1-1.0); MONO % 5.8 % (3.0-9.0); NEUT % 71.2 % (47.0-73.0); PLATELET COUNT AUTOMATED 339 10*3/uL (130-400); RED BLOOD COUNT 4.61 10*6/uL (4.10-5.10); RED CELL DISTRI WIDTH 13.9 % (0-14.5); WHITE BLOOD COUNT 14.1 10*3/uL (4.8-10.8)
[2020-03-16 03:56] LABS: ACT PARTIAL THROMBO TIME 25.5 SECONDS (20.0-32.1)
[2020-03-16 04:02] LABS: ALBUMIN 3.5 gm/dl (3.1-4.5); CREATININE 1.18 mg/dL (0.55-1.02); POTASSIUM 3.3 mmol/L (3.5-5.1); TOTAL PROTEIN 7.1 gm/dL (6.4-8.2); TROPONIN I 0.022 ng/ml (<0.045)
--- NOTE | 2020-03-16 06:15 | NUR ---
A 70, admitted to , under the services of AUBREY Lopez DO with a diagnosis of SVT. CHEST PAIN. Chief complaint is CALLED EMS FOR ELEVATED HR 198-220. ADENOSINE X 2. HR IN ER 110-120. Patient arrived via bed from ER. Monitor applied. Initial assessment completed. Vital signs taken and recorded. AUBREY LOPEZ DO / SHIVA notified of admission to the unit. Orders received. See assessment for past medical history, medications and allergies. Patient and/or family oriented to unit. [facility] visitation policy reviewed. Clothing/patient valuable form completed. ANNA MARIE MUNOZ
--- NOTE | 2020-03-16 06:30 | NUR ---
PATIENT UNSURE OF HOME MEDS. SOME MEDS ARRIVE VIA MAIL, COMES MEDS FILLED AT [facility]
--- NOTE | 2020-03-16 06:43 | NUR ---
LAB CALLED AT THIS TIME WITH CRITICAL TROPONIN RESULT OF 0.062
--- NOTE | 2020-03-16 06:47 | NUR ---
DR. SHANNON NOTIFIED AT THIS TIME OF CRITICAL TROPONIN OF 0.062. WILL REVIEW AND PLACE ORDERS.
--- NOTE | 2020-03-16 08:07 | NUR ---
NOTIFIED DR POSADAS OF NEW CONSULT
--- NOTE | 2020-03-16 08:15 | NUR ---
ASSESEMENT COMPLETE WITHOUT INCIDENCE. PT STATES "I AM FEELING MUCH BETTER, I AM READY TO GO HOME, THE ONLY REASON I AM HERE IS BECAUSE I RAN OUT OF MEDICATIONS". PT TALKS ABOUT THE PRESIDENT AND THATS THE REASON SHE IS NOT GETTING HER MEDICATIONS PROPERLY. INFORMED HER HOW DR POSADAS WILL BE IN TO SEE HER, SHE STATES THAT IS FINE BUT NOTHING IS WRONG WITH HER HEART. CALL LIGHT WITHIN REACH OF PATIENT, WILL CONTINUE TO MONITOR
--- NOTE | 2020-03-16 08:25 | NUR ---
WENT OVER MED LIST WITH PATIENT, SHE STATES SHE HAS NOT TAKEN SOME OF THE MEDICATIONS LATELY BECAUSE SHE RAN OUT, THATS WHY SHE IS HERE. WILL LET DOCTOR KNOW ABOUT UPDATED MED LIST PER PT
--- NOTE | 2020-03-16 08:40 | NUR ---
NOTIFIED DR SHANNON OF UPDATED MED LIST
--- NOTE | 2020-03-16 09:07 | NUR ---
CT CALLED AND STATES THE PT NEEDS TO BE HYDRATED AND HAVE LABS DONE BEFORE BEING ABLE TO GET THE CT, AND SHE SEES NO ORDRES IN FOR ANY. WILL CALL DOCTOR TO SEE WHAT THEY WANT DONE
--- NOTE | 2020-03-16 09:10 | NUR ---
SPOKE TO DR FORBES AND HE STATES TO ADD A ORDER OF 500 BOLUS NOW SO THAT THE PATIENT IS ABLE TO HAVE HER CT DONE. WILL ADD ORDER DESIRED
--- NOTE | 2020-03-16 10:23 | NUR ---
CALLED CALLED WITH CRITICAL TROPONIN OF 0.125
--- NOTE | 2020-03-16 10:25 | NUR ---
NOTIFIED DR FORBES OF TROPONIN 0.125
--- NOTE | 2020-03-16 10:35 | NUR ---
DR POSADAS NOTIFIED OF TROPONIN 0.125, HE STATES HE WILL BE HERE IN AN HOUR TO SEE THE PATIENT
--- NOTE | 2020-03-16 10:50 | NUR ---
PT OFF FLOOR TO CT
--- NOTE | 2020-03-16 11:15 | NUR ---
PT BACK ON FLOOR
--- NOTE | 2020-03-16 11:30 | NUR ---
DR POSADAS IN TO SEE PATIENT
--- NOTE | 2020-03-16 14:51 | NUR ---
NOTIFIED DR POSADAS OF BLOOD SUGAR 196, SHE STATES TO GIVE GLIPIZIDE AT 1630 AND TO RECHECK AFTER
[2020-03-17] VITALS: BP 134/59
[2020-03-17 06:39] LABS: BASO # 0.1 10*3/uL (0.0-0.1); BASO % 0.6 % (0.0-1.0); EOS # 0.3 10*3/uL (0.0-0.4); EOS % 3.9 % (1.0-4.0); HEMATOCRIT 36.3 % (37.0-47.0); LYMPH # 3.3 10*3/uL (1.3-4.4); LYMPH % 37.8 % (27.0-41.0); MEAN CELL VOLUME 89.2 fl (81.0-99.0); MEAN CORPUSCULAR HGB 27.8 pg (27.0-31.0); MEAN CORPUSCULAR HGB CONC 31.1 g/dl (33.0-37.0); MEAN PLATELET VOLUME 11.7 fl (9.6-12.3); MONO # 0.7 10*3/uL (0.1-1.0); MONO % 7.7 % (3.0-9.0); NEUT # 4.4 10*3/uL (2.3-7.9); NEUT % 49.7 % (47.0-73.0); PLATELET COUNT AUTOMATED 253 10*3/uL (130-400); RED BLOOD COUNT 4.07 10*6/uL (4.10-5.10); RED CELL DISTRI WIDTH 13.9 % (0-14.5); WHITE BLOOD COUNT 8.8 10*3/uL (4.8-10.8)
[2020-03-17 06:56] LABS: CHLORIDE 107 mmol/L (98-107); POTASSIUM 3.5 mmol/L (3.5-5.1); SODIUM 138 mmol/L (136-145)
[2020-03-17 06:57] LABS: CREATININE 0.49 mg/dL (0.55-1.02)
[2020-03-17 07:01] LABS: BUN 12 mg/dl (7-24)
[2020-03-17 09:00] VITALS: BP 141/73
[2020-03-17 12:00] VITALS: BP 103/84
--- NOTE | 2020-03-17 12:00 | NUR ---
PT DISCHARGED HOME. [place] REMOVED. PRESCRIPTIONS AND FOLLOW UP CARE DISCUSSED.
[2020-03-17] MEDS ORDERED: KLOR-CON M1010 ME1 PO (13:45)
[2020-03-17] MEDS ORDERED: FLECAINIDE ACE100 M1 PO (13:45)
--- NOTE | 2020-03-17 13:52 | NUR ---
Woods Laborer in to talk to patient. Patient states lives at home with alone. There are no steps in the home. Physician: alex rizo Pharmacy: [facility] Home health services: none Patient's level of ADLs: INDEPENDENT Patient has working utilities: all working DME: cane, home oxygen Follow-up physician's appointment after d/c: will be made by hospitalist nurse director upon discharge Does patient want to access PORTAL?: no Discharge plan discussed with patient, she lives at home, uses a cane for ambulation, states she will return home when discharged and denies any home needs, case mangement will follow. TESFAYE CHANDLER
== END 2020-03-17 13:52 | disposition home or self-care (01) | DRG 280 ==
LOC: ED 03:25 → EDHOLD 05:21 → 5E 05:56
PROVIDERS: Emergency Medicine; Internal Medicine; ADMIT Emergency Medicine
DX: I47.1 Supraventricular tachycardia (principal); N17.0 Acute kidney failure with tubular necrosis; I21.A1 Myocardial infarction type 2; R65.10 Systemic inflammatory response syndrome (SIRS) of non-infectious origin without acute organ dysfunction; E44.0 Moderate protein-calorie malnutrition; J96.10 Chronic respiratory failure, unspecified whether with hypoxia or hypercapnia; E87.6 Hypokalemia; E83.42 Hypomagnesemia; E11.65 Type 2 diabetes mellitus with hyperglycemia; F41.9 Anxiety disorder, unspecified; G47.00 Insomnia, unspecified; D72.829 Elevated white blood cell count, unspecified; J44.9 Chronic obstructive pulmonary disease, unspecified; K21.9 Gastro-esophageal reflux disease without esophagitis; G31.83 Neurocognitive disorder with Lewy bodies; F02.80 Dementia in other diseases classified elsewhere, unspecified severity, without behavioral disturbance, psychotic disturbance, mood disturbance, and anxiety; I10 Essential (primary) hypertension; K57.90 Diverticulosis of intestine, part unspecified, without perforation or abscess without bleeding; F32.9 Major depressive disorder, single episode, unspecified; Z96.653 Presence of artificial knee joint, bilateral; Z87.11 Personal history of peptic ulcer disease; Z90.710 Acquired absence of both cervix and uterus; Z90.49 Acquired absence of other specified parts of digestive tract; Z87.891 Personal history of nicotine dependence; Z82.49 Family history of ischemic heart disease and other diseases of the circulatory system; Z82.3 Family history of stroke; Z88.5 Allergy status to narcotic agent; Z88.8 Allergy status to other drugs, medicaments and biological substances; Z79.84 Long term (current) use of oral hypoglycemic drugs; Z79.899 Other long term (current) drug therapy; Z68.32 Body mass index [BMI] 32.0-32.9, adult

== ENCOUNTER → 2020-05-05 | Outpatient (CLI) | payer MEDICARE, OTHER ==
[~2020-05-05] MED LIST changes: +FLECAINIDE ACE100 M1 PO; +KLOR-CON M1010 ME1 PO
== END | disposition home or self-care (01) ==
LOC: CT 10:53
PROVIDERS: ATTEND Family Medicine
DX: K57.30 Diverticulosis of large intestine without perforation or abscess without bleeding (principal); I25.10 Atherosclerotic heart disease of native coronary artery without angina pectoris; D17.24 Benign lipomatous neoplasm of skin and subcutaneous tissue of left leg

== ENCOUNTER 2021-02-12 14:35 | Emergency (ER) | payer OTHER, MEDICARE ==
[~2021-02-12] VITALS: Ht 152.4 cm; Wt 81.6 kg
[2021-02-12 14:45] VITALS: BP 134/71
== END 2021-02-12 18:02 | disposition home or self-care (01) ==
LOC: ED 14:35
DX: S20.02XA Contusion of left breast, initial encounter (principal); S20.01XA Contusion of right breast, initial encounter; S50.12XA Contusion of left forearm, initial encounter; E11.9 Type 2 diabetes mellitus without complications; J44.9 Chronic obstructive pulmonary disease, unspecified; I10 Essential (primary) hypertension; Z88.5 Allergy status to narcotic agent; Z88.8 Allergy status to other drugs, medicaments and biological substances; Z88.6 Allergy status to analgesic agent; Z88.2 Allergy status to sulfonamides; Z79.899 Other long term (current) drug therapy; Z96.653 Presence of artificial knee joint, bilateral; Z98.890 Other specified postprocedural states; Z90.49 Acquired absence of other specified parts of digestive tract; Z90.711 Acquired absence of uterus with remaining cervical stump; Z87.891 Personal history of nicotine dependence; V47.5XXA Car driver injured in collision with fixed or stationary object in traffic accident, initial encounter; Y93.I9 Activity, other involving external motion; Y92.488 Other paved roadways as the place of occurrence of the external cause; Y99.8 Other external cause status

== ENCOUNTER → 2021-02-15 | Outpatient (CLI) | payer OTHER, MEDICARE | END | disposition home or self-care (01) | LOC: US 16:11 | PROVIDERS: ATTEND Family Medicine | DX: N60.41 Mammary duct ectasia of right breast (principal); S20.01XD Contusion of right breast, subsequent encounter; S50.12XD Contusion of left forearm, subsequent encounter; X58.XXXD Exposure to other specified factors, subsequent encounter ==

== ENCOUNTER → 2022-01-04 | Outpatient (CLI) | payer MEDICARE, OTHER | END | disposition home or self-care (01) | LOC: MAMMO 14:13 | PROVIDERS: ATTEND Family Medicine | DX: N60.01 Solitary cyst of right breast (principal); N64.59 Other signs and symptoms in breast; N63.14 Unspecified lump in the right breast, lower inner quadrant ==

== ENCOUNTER → 2022-10-10 | Outpatient (CLI) | payer MEDICARE, OTHER | END | disposition home or self-care (01) | LOC: RAD 15:36 | PROVIDERS: ATTEND Family Medicine | DX: M47.814 Spondylosis without myelopathy or radiculopathy, thoracic region (principal); M85.88 Other specified disorders of bone density and structure, other site; M47.817 Spondylosis without myelopathy or radiculopathy, lumbosacral region; M41.86 Other forms of scoliosis, lumbar region; I70.0 Atherosclerosis of aorta; M48.04 Spinal stenosis, thoracic region; M43.8X4 Other specified deforming dorsopathies, thoracic region; M43.8X6 Other specified deforming dorsopathies, lumbar region ==

== ENCOUNTER 2023-01-23 14:05 | Emergency (ER) | payer MEDICARE, OTHER ==
[~2023-01-23] VITALS: Ht 152.4 cm; Wt 83.9 kg
[2023-01-23 14:26] LABS: BASO # 0.1 10*3/uL (0.0-0.1); BASO % 0.7 % (0.0-1.0); EOS # 0.1 10*3/uL (0.0-0.4); EOS % 1.7 % (1.0-4.0); HEMATOCRIT 43.1 % (37.0-47.0); LYMPH # 1.9 10*3/uL (1.3-4.4); LYMPH % 26.7 % (27.0-41.0); MEAN CELL VOLUME 92.3 fl (81.0-99.0); MEAN CORPUSCULAR HGB 30.2 pg (27.0-31.0); MEAN CORPUSCULAR HGB CONC 32.7 g/dl (33.0-37.0); MEAN PLATELET VOLUME 11.5 fl (9.6-12.3); MONO # 0.7 10*3/uL (0.1-1.0); MONO % 9.2 % (3.0-9.0); NEUT # 4.3 10*3/uL (2.3-7.9); NEUT % 61.3 % (47.0-73.0); PLATELET COUNT AUTOMATED 240 10*3/uL (130-400); RED BLOOD COUNT 4.67 10*6/uL (4.10-5.10); RED CELL DISTRI WIDTH 13.7 % (0-14.5); WHITE BLOOD COUNT 7.1 10*3/uL (4.8-10.8)
[2023-01-23 14:37] LABS: ACT PARTIAL THROMBO TIME 25.6 SECONDS (20.0-32.1)
[2023-01-23 14:47] LABS: ALKALINE PHOSPHATASE 58 U/L (46-116); BUN 21 mg/dl (9-23); CHLORIDE 101 mmol/L (98-107); POTASSIUM 3.6 mmol/L (3.4-5.1); TOTAL PROTEIN 6.6 gm/dL (6.0-8.0)
[2023-01-23 14:53] LABS: SGPT/ALT < 7 U/L (10-49)
[2023-01-23 16:38] VITALS: BP 132/56
[2023-01-23] MEDS ORDERED: ANTIVERT25 M2 PO (17:59)
[2023-01-23] MEDS ORDERED: CIPRO500 MG PO (17:59)
== END 2023-01-23 18:02 | disposition home or self-care (01) ==
LOC: ED 14:05
PROVIDERS: Nurse Practitioner Family
DX: J44.9 Chronic obstructive pulmonary disease, unspecified (principal); E11.9 Type 2 diabetes mellitus without complications; I10 Essential (primary) hypertension; F32.A Depression, unspecified; F03.90 Unspecified dementia, unspecified severity, without behavioral disturbance, psychotic disturbance, mood disturbance, and anxiety; M79.7 Fibromyalgia; F41.9 Anxiety disorder, unspecified; Z88.5 Allergy status to narcotic agent; Z88.8 Allergy status to other drugs, medicaments and biological substances; Z88.2 Allergy status to sulfonamides; Z90.89 Acquired absence of other organs; Z90.710 Acquired absence of both cervix and uterus; Z90.49 Acquired absence of other specified parts of digestive tract; Z98.890 Other specified postprocedural states; Z96.653 Presence of artificial knee joint, bilateral; Z87.891 Personal history of nicotine dependence

== ENCOUNTER → 2023-05-03 | Outpatient (CLI) | payer MEDICARE, OTHER ==
[~2023-05-03] MED LIST changes: +ANTIVERT25 M2 PO; +CEFDINIR300 MG PO; +CIPRO500 MG PO; +MACRODANTIN100 M1 PO
[2023-05-03 09:45] LABS: BASO % 0.3 % (0.0-1.0); EOS # 0.2 10*3/uL (0.0-0.4); EOS % 3.1 % (1.0-4.0); LYMPH # 2.3 10*3/uL (1.3-4.4); LYMPH % 39.1 % (27.0-41.0); MEAN CELL VOLUME 91.1 fl (81.0-99.0); MEAN CORPUSCULAR HGB 29.9 pg (27.0-31.0); MEAN CORPUSCULAR HGB CONC 32.8 g/dl (33.0-37.0); MEAN PLATELET VOLUME 11.2 fl (9.6-12.3); MONO # 0.5 10*3/uL (0.1-1.0); MONO % 8.5 % (3.0-9.0); NEUT # 2.8 10*3/uL (2.3-7.9); NEUT % 48.5 % (47.0-73.0); PLATELET COUNT AUTOMATED 278 10*3/uL (130-400); RED BLOOD COUNT 4.72 10*6/uL (4.10-5.10); RED CELL DISTRI WIDTH 13.1 % (0-14.5); RETICULOCYTE % 1.07 % (0.50-2.50); WHITE BLOOD COUNT 5.8 10*3/uL (4.8-10.8)
[2023-05-03 09:46] LABS: BILIRUBIN Negative (Negative); BLOOD Negative (Negative); CLARITY Clear (Clear); COLOR Yellow (Yellow); GLUCOSE Negative (Negative); KETONE Negative (Negative); LEUKO ESTERASE Negative (Negative); NITRITE Negative (Negative); PH 5.5 (4.5-8.0); UROBILINOGEN 0.2 E.U./dl (0.0-1.0)
[2023-05-03 10:22] LABS: ALKALINE PHOSPHATASE 71 U/L (46-116); BUN 13 mg/dl (9-23); CHLORIDE 101 mmol/L (98-107); CHOLESTEROL 185 mg/dL (<200); GAMMA GLUTAMYL TRANSPEPTIDASE 32 U/L (0-73); LDL CHOLESTEROL 119 mg/dL (9-159); POTASSIUM 3.3 mmol/L (3.4-5.1); SGPT/ALT 13 U/L (10-49); TOTAL PROTEIN 6.5 gm/dL (6.0-8.0); TRIGLYCERIDES 107 mg/dl (<150); VITAMIN D, 25-HYDROXY 64.9 ng/mL (30-100)
[2023-05-03 10:52] LABS: BACTERIA 1+
== END | disposition home or self-care (01) ==
LOC: LAB 00:47 → CT 09:00 → LAB 09:00
PROVIDERS: ATTEND Family Medicine
DX: N20.0 Calculus of kidney (principal); I25.10 Atherosclerotic heart disease of native coronary artery without angina pectoris; R79.89 Other specified abnormal findings of blood chemistry; R53.83 Other fatigue; E78.5 Hyperlipidemia, unspecified; E55.9 Vitamin D deficiency, unspecified; K44.9 Diaphragmatic hernia without obstruction or gangrene; N28.1 Cyst of kidney, acquired; N28.89 Other specified disorders of kidney and ureter; K57.30 Diverticulosis of large intestine without perforation or abscess without bleeding

== ENCOUNTER 2023-05-19 17:07 | Emergency (ER) | payer OTHER, MEDICARE ==
[~2023-05-19] VITALS: Ht 154.9 cm; Wt 83.9 kg
[2023-05-19 17:22] VITALS: BP 126/75
== END 2023-05-19 18:19 | disposition left against medical advice (07) ==
LOC: ED 17:07
DX: R07.81 Pleurodynia (principal); M25.512 Pain in left shoulder; Z53.21 Procedure and treatment not carried out due to patient leaving prior to being seen by health care provider

== ENCOUNTER 2023-05-22 02:25 | Emergency (ER) | payer MEDICARE, OTHER ==
[~2023-05-22] VITALS: Ht 165.1 cm; Wt 84.4 kg
[2023-05-22 02:36] VITALS: BP 155/66
[2023-05-22] MEDS ORDERED: NAPROXEN250 MG PO (03:59)
== END 2023-05-22 04:18 | disposition home or self-care (01) ==
LOC: ED 02:25
DX: S20.212A Contusion of left front wall of thorax, initial encounter (principal); E11.9 Type 2 diabetes mellitus without complications; I10 Essential (primary) hypertension; J44.9 Chronic obstructive pulmonary disease, unspecified; F32.A Depression, unspecified; F03.90 Unspecified dementia, unspecified severity, without behavioral disturbance, psychotic disturbance, mood disturbance, and anxiety; F41.9 Anxiety disorder, unspecified; Z88.5 Allergy status to narcotic agent; Z88.2 Allergy status to sulfonamides; Z88.8 Allergy status to other drugs, medicaments and biological substances; Z96.653 Presence of artificial knee joint, bilateral; Z90.49 Acquired absence of other specified parts of digestive tract; Z90.710 Acquired absence of both cervix and uterus; Z90.89 Acquired absence of other organs; Z98.890 Other specified postprocedural states; Z87.891 Personal history of nicotine dependence; V89.2XXA Person injured in unspecified motor-vehicle accident, traffic, initial encounter; Y93.89 Activity, other specified; Y92.410 Unspecified street and highway as the place of occurrence of the external cause; Y99.8 Other external cause status

== ENCOUNTER → 2023-09-08 | Emergency (ER) | payer MEDICARE, OTHER ==
[~2023-09-08] VITALS: Ht 154.9 cm; Wt 75.7 kg
[~2023-09-08] MED LIST changes: +Albuterol Sulf/Ipratropium 3 ML VIAL NEB ONE; +CELECOXIB200 M1 PO; +MELATONIN10 M4 PO; +MOMETASONE FURO15 GM T; +NAPROXEN250 MG PO; +PANTOPRAZOLE SO20 MG PO; +PROVENTIL HFA6.7 GM INH; +VIBRAMYCIN100 MG PO; +VITAMIN B1250 MCG PO; +VITAMIN D325 MCG PO; +methylPREDNISolone sod succ 125 MG VIAL IV ONE
[2023-09-08 11:49] VITALS: BP 155/50
[2023-09-08 12:20] LABS: BASO # 0.1 10*3/uL (0.0-0.1); BASO % 0.5 % (0.0-1.0); EOS # 0.3 10*3/uL (0.0-0.4); EOS % 2.2 % (1.0-4.0); HEMATOCRIT 38.1 % (37.0-47.0); LYMPH # 1.3 10*3/uL (1.3-4.4); LYMPH % 10.8 % (27.0-41.0); MEAN CELL VOLUME 97.7 fl (81.0-99.0); MEAN CORPUSCULAR HGB CONC 29.7 g/dl (33.0-37.0); MEAN PLATELET VOLUME 11.9 fl (9.6-12.3); MONO % 8.1 % (3.0-9.0); NEUT # 9.4 10*3/uL (2.3-7.9); PLATELET COUNT AUTOMATED 208 10*3/uL (130-400); RED CELL DISTRI WIDTH 14.8 % (0-14.5); WHITE BLOOD COUNT 12.1 10*3/uL (4.8-10.8)
[2023-09-08 12:40] LABS: ALKALINE PHOSPHATASE 60 U/L (46-116); BUN 17 mg/dl (9-23); CHLORIDE 108 mmol/L (98-107); POTASSIUM 4.5 mmol/L (3.4-5.1); SGPT/ALT 12 U/L (5-49); TOTAL PROTEIN 6.3 gm/dL (6.0-8.0)
== END ==
LOC: ED 11:31
PROVIDERS: Nurse Practitioner Family
DX: J44.1 Chronic obstructive pulmonary disease with (acute) exacerbation (principal); Z20.822 Contact with and (suspected) exposure to COVID-19; I10 Essential (primary) hypertension; E11.9 Type 2 diabetes mellitus without complications; K21.9 Gastro-esophageal reflux disease without esophagitis; F32.A Depression, unspecified; Z88.5 Allergy status to narcotic agent; Z88.8 Allergy status to other drugs, medicaments and biological substances; Z88.6 Allergy status to analgesic agent; Z88.2 Allergy status to sulfonamides; Z79.899 Other long term (current) drug therapy; Z96.653 Presence of artificial knee joint, bilateral; Z90.49 Acquired absence of other specified parts of digestive tract; Z90.710 Acquired absence of both cervix and uterus; Z87.891 Personal history of nicotine dependence

== ENCOUNTER → 2023-09-26 | Outpatient (CLI) | payer MEDICARE, OTHER ==
[~2023-09-26] MED LIST changes: -Albuterol Sulf/Ipratropium 3 ML VIAL NEB ONE; +Regadenoson 0.4 MG/5 ML SYR IV ONE; +Technetium Tc 99M Tetrofosmi 0.23 MG KIT IJ SCH; -methylPREDNISolone sod succ 125 MG VIAL IV ONE
== END | disposition home or self-care (01) ==
LOC: CARD 01:54
PROVIDERS: ATTEND Internal Medicine Cardiovascular Disease
DX: I44.7 Left bundle-branch block, unspecified (principal); I51.0 Cardiac septal defect, acquired; R94.31 Abnormal electrocardiogram [ECG] [EKG]; E11.9 Type 2 diabetes mellitus without complications; E78.2 Mixed hyperlipidemia; R07.89 Other chest pain; R06.02 Shortness of breath; R00.1 Bradycardia, unspecified

== ENCOUNTER → 2023-10-04 | Outpatient (CLI) | payer MEDICARE, OTHER ==
[~2023-10-04] MED LIST changes: +PERFLUTREN PROTEIN-A MICROSPHR 3 ML VIAL IV ONE; -Regadenoson 0.4 MG/5 ML SYR IV ONE; -Technetium Tc 99M Tetrofosmi 0.23 MG KIT IJ SCH
== END | disposition home or self-care (01) ==
LOC: CARD 02:20
PROVIDERS: ATTEND Internal Medicine Cardiovascular Disease
DX: I11.9 Hypertensive heart disease without heart failure (principal); R07.89 Other chest pain; R06.02 Shortness of breath; E11.9 Type 2 diabetes mellitus without complications; R00.1 Bradycardia, unspecified

== ENCOUNTER 2023-10-27 17:57 | Emergency (ER) | payer MEDICARE, OTHER ==
[~2023-10-27] VITALS: Ht 152.4 cm; Wt 81.6 kg
[~2023-10-27 17:57] MED LIST changes: -PERFLUTREN PROTEIN-A MICROSPHR 3 ML VIAL IV ONE
[2023-10-27 18:13] VITALS: BP 182/74
[2023-10-27] MEDS ORDERED: methylPREDNISolone sod succ 125 MG VIAL IM ONE (18:20)
[2023-10-27] MEDS ORDERED: Albuterol Sulf/Ipratropium 3 ML VIAL NEB ONE (18:20)
[2023-10-27] MEDS ORDERED: methylPREDNISolone sod succ 125 MG VIAL IV ONE (18:30)
[2023-10-27 18:37] LABS: BILIRUBIN Negative (Negative); BLOOD Negative (Negative); CLARITY Clear (Clear); COLOR Yellow (Yellow); GLUCOSE Negative (Negative); KETONE Negative (Negative); LEUKO ESTERASE Negative (Negative); NITRITE Negative (Negative); PH 6.5 (4.5-8.0); UROBILINOGEN 0.2 E.U./dl (0.0-1.0)
[2023-10-27 18:49] LABS: BASO % 0.4 % (0.0-1.0); EOS # 0.4 10*3/uL (0.0-0.4); EOS % 3.8 % (1.0-4.0); LYMPH % 22.2 % (27.0-41.0); MEAN CELL VOLUME 94.8 fl (81.0-99.0); MEAN CORPUSCULAR HGB 28.9 pg (27.0-31.0); MEAN CORPUSCULAR HGB CONC 30.5 g/dl (33.0-37.0); MEAN PLATELET VOLUME 11.6 fl (9.6-12.3); MONO # 0.7 10*3/uL (0.1-1.0); MONO % 7.3 % (3.0-9.0); PLATELET COUNT AUTOMATED 267 10*3/uL (130-400); RED BLOOD COUNT 4.22 10*6/uL (4.10-5.10); RED CELL DISTRI WIDTH 13.5 % (0-14.5); WHITE BLOOD COUNT 9.1 10*3/uL (4.8-10.8)
[2023-10-27 18:57] LABS: WBC 0-2 wbc/hpf (0-5)
[2023-10-27 19:02] LABS: ACT PARTIAL THROMBO TIME 24.8 SECONDS (20.0-32.1)
[2023-10-27 19:11] LABS: ALKALINE PHOSPHATASE 56 U/L (46-116); BUN 20 mg/dl (9-23); CHLORIDE 102 mmol/L (98-107); LIPASE 27 U/L (12-53); SGPT/ALT 9 U/L (5-49); TOTAL PROTEIN 6.8 gm/dL (6.0-8.0)
[2023-10-27] MEDS ORDERED: PREDNISONE20 M1 PO (20:54)
[2023-10-27] MEDS ORDERED: PROVENTIL HFA6.7 GM INH (20:54)
[2023-10-27] MEDS ORDERED: Sertraline Hydrochloride 50 MG TAB PO SCH ×2 (21:00)
[2023-10-27] MEDS ORDERED: Sertraline Hydrochloride 50 MG TAB PO ONE (21:00)
== END 2023-10-27 21:02 | disposition home or self-care (01) ==
LOC: ED 17:57
PROVIDERS: Physician Assistant
DX: J44.1 Chronic obstructive pulmonary disease with (acute) exacerbation (principal); F41.9 Anxiety disorder, unspecified; Z88.5 Allergy status to narcotic agent; Z88.8 Allergy status to other drugs, medicaments and biological substances; Z88.2 Allergy status to sulfonamides; Z79.899 Other long term (current) drug therapy; Z96.653 Presence of artificial knee joint, bilateral; Z98.890 Other specified postprocedural states; Z90.49 Acquired absence of other specified parts of digestive tract; Z90.89 Acquired absence of other organs; Z90.711 Acquired absence of uterus with remaining cervical stump; Z87.891 Personal history of nicotine dependence

== ENCOUNTER → 2024-02-23 | Outpatient (CLI) | payer MEDICARE, OTHER ==
[~2024-02-23] MED LIST changes: +ASPIRIN CHEWABL81 MG PO; +AVPAK AZITHROM250 M1 PO; +CELECOXIB200 MG PO; +FLUONAZOLE150 M1 PO; +LISINOPRIL5 MG PO; +PREDNISONE10 MG PO; +PREDNISONE20 M1 PO
== END | disposition home or self-care (01) ==
LOC: US 02-20 12:30
PROVIDERS: ATTEND Internal Medicine Cardiovascular Disease
DX: I65.23 Occlusion and stenosis of bilateral carotid arteries (principal); R55 Syncope and collapse; I10 Essential (primary) hypertension; E11.9 Type 2 diabetes mellitus without complications; R41.3 Other amnesia; R51.9 Headache, unspecified; F17.200 Nicotine dependence, unspecified, uncomplicated

== ENCOUNTER → 2024-11-20 | Outpatient (CLI) | payer MEDICARE, OTHER ==
[2024-11-20 14:54] LABS: BASO # 0.1 10*3/uL (0.0-0.1); BASO % 0.6 % (0.0-1.0); EOS # 0.4 10*3/uL (0.0-0.4); EOS % 3.8 % (1.0-4.0); HEMATOCRIT 39.9 % (37.0-47.0); MEAN CELL VOLUME 92.4 fl (81.0-99.0); MEAN CORPUSCULAR HGB 28.9 pg (27.0-31.0); MEAN CORPUSCULAR HGB CONC 31.3 g/dl (33.0-37.0); MEAN PLATELET VOLUME 11.3 fl (9.6-12.3); MONO # 0.9 10*3/uL (0.1-1.0); MONO % 8.4 % (3.0-9.0); NEUT # 7.7 10*3/uL (2.3-7.9); NEUT % 68.5 % (47.0-73.0); PLATELET COUNT AUTOMATED 249 10*3/uL (130-400); RED BLOOD COUNT 4.32 10*6/uL (4.10-5.10); RED CELL DISTRI WIDTH 13.7 % (0-14.5); RETICULOCYTE % 1.26 % (0.50-2.50); WHITE BLOOD COUNT 11.2 10*3/uL (4.8-10.8)
[2024-11-20 15:01] LABS: BILIRUBIN Negative (Negative); BLOOD Negative (Negative); CLARITY Cloudy (Clear); COLOR Yellow (Yellow); GLUCOSE Negative (Negative); KETONE Negative (Negative); LEUKO ESTERASE 2+ (Negative); NITRITE Negative (Negative); UROBILINOGEN 0.2 E.U./dl (0.0-1.0)
[2024-11-20 15:13] LABS: BACTERIA 2+; RBC 0-2 rbc/hpf (0-2); WBC 41-50 wbc/hpf (0-5)
[2024-11-20 15:25] LABS: POTASSIUM 3.9 mmol/L (3.4-5.1); T3 UPTAKE 31.4 % (22.4-36.7); TOTAL PROTEIN 6.3 gm/dL (6.0-8.0)
[2024-11-20 15:29] LABS: VITAMIN D, 25-HYDROXY 69.9 ng/mL (30-100)
== END | disposition home or self-care (01) ==
LOC: LAB 14:30
PROVIDERS: ATTEND Family Medicine
DX: E78.5 Hyperlipidemia, unspecified (principal); R53.83 Other fatigue; R79.89 Other specified abnormal findings of blood chemistry; E55.9 Vitamin D deficiency, unspecified

== ENCOUNTER 2024-11-24 15:04 | Emergency (ER) | payer MEDICARE, OTHER ==
[~2024-11-24] VITALS: Ht 152.4 cm; Wt 90.7 kg
[2024-11-24] MEDS ORDERED: methylPREDNISolone sod succ 125 MG VIAL IV ONE (15:35)
[2024-11-24] MEDS ORDERED: Albuterol Sulfate 2.5 MG/3 ML VIAL NEB ONE (15:35)
[2024-11-24] MEDS ORDERED: MAGNESIUM SULFATE 50 ML IV ONE (15:35)
[2024-11-24] MEDS ORDERED: AZITHROMYCIN 250 MG TAB PO ONE (15:35)
[2024-11-24 15:49] LABS: BASO # 0.1 10*3/uL (0.0-0.1); BASO % 0.8 % (0.0-1.0); EOS # 0.4 10*3/uL (0.0-0.4); EOS % 4.6 % (1.0-4.0); HEMATOCRIT 39.6 % (37.0-47.0); MEAN CELL VOLUME 92.1 fl (81.0-99.0); MEAN CORPUSCULAR HGB 28.6 pg (27.0-31.0); MEAN CORPUSCULAR HGB CONC 31.1 g/dl (33.0-37.0); MEAN PLATELET VOLUME 11.4 fl (9.6-12.3); MONO # 0.7 10*3/uL (0.1-1.0); MONO % 7.6 % (3.0-9.0); NEUT # 6.4 10*3/uL (2.3-7.9); NEUT % 68.7 % (47.0-73.0); PLATELET COUNT AUTOMATED 218 10*3/uL (130-400); WHITE BLOOD COUNT 9.3 10*3/uL (4.8-10.8)
[2024-11-24 16:09] LABS: BUN 16 mg/dl (9-23); CHLORIDE 105 mmol/L (98-107); POTASSIUM 4.2 mmol/L (3.4-5.1)
[2024-11-24] MEDS ORDERED: PREDNISONE20 M1 PO (16:28)
[2024-11-24] MEDS ORDERED: AVPAK AZITHROM250 M1 PO (16:28)
== END 2024-11-24 16:57 | disposition home or self-care (01) ==
LOC: ED 15:04
PROVIDERS: Emergency Medicine
DX: J44.1 Chronic obstructive pulmonary disease with (acute) exacerbation (principal); L03.113 Cellulitis of right upper limb; M79.7 Fibromyalgia; E11.9 Type 2 diabetes mellitus without complications; I10 Essential (primary) hypertension; E78.5 Hyperlipidemia, unspecified; F32.A Depression, unspecified; F41.9 Anxiety disorder, unspecified; Z88.5 Allergy status to narcotic agent; Z88.8 Allergy status to other drugs, medicaments and biological substances; Z88.6 Allergy status to analgesic agent; Z88.2 Allergy status to sulfonamides; Z79.899 Other long term (current) drug therapy; Z79.84 Long term (current) use of oral hypoglycemic drugs; Z79.82 Long term (current) use of aspirin; Z96.653 Presence of artificial knee joint, bilateral; Z98.890 Other specified postprocedural states; Z90.49 Acquired absence of other specified parts of digestive tract; Z90.89 Acquired absence of other organs; Z90.710 Acquired absence of both cervix and uterus; Z87.891 Personal history of nicotine dependence

== ENCOUNTER 2025-03-20 16:35 | Emergency (ER) | payer MEDICARE, OTHER ==
[2025-03-20 16:47] VITALS: BP 128/58
[2025-03-20] MEDS ORDERED: Bacitracin Zinc 14 GM TUBE T ONE (17:00)
[2025-03-20] MEDS ORDERED: TRIAMCINOLONE430 GM TD (17:39)
[2025-03-20] MEDS ORDERED: CEPHALEXIN500 M1 PO (17:39)
== END 2025-03-20 17:59 | disposition home or self-care (01) ==
LOC: ED 16:35
DX: S80.212A Abrasion, left knee, initial encounter (principal); M25.552 Pain in left hip; R21 Rash and other nonspecific skin eruption; J44.9 Chronic obstructive pulmonary disease, unspecified; E78.5 Hyperlipidemia, unspecified; I10 Essential (primary) hypertension; I48.91 Unspecified atrial fibrillation; E11.9 Type 2 diabetes mellitus without complications; F03.90 Unspecified dementia, unspecified severity, without behavioral disturbance, psychotic disturbance, mood disturbance, and anxiety; Z88.5 Allergy status to narcotic agent; Z88.6 Allergy status to analgesic agent; Z88.2 Allergy status to sulfonamides; Z88.8 Allergy status to other drugs, medicaments and biological substances; Z79.899 Other long term (current) drug therapy; Z79.84 Long term (current) use of oral hypoglycemic drugs; Z79.82 Long term (current) use of aspirin; Z96.653 Presence of artificial knee joint, bilateral; Z98.890 Other specified postprocedural states; Z90.49 Acquired absence of other specified parts of digestive tract; Z90.710 Acquired absence of both cervix and uterus; Z90.89 Acquired absence of other organs; Z87.891 Personal history of nicotine dependence; W18.39XA Other fall on same level, initial encounter; Y93.89 Activity, other specified; Y92.89 Other specified places as the place of occurrence of the external cause; Y99.8 Other external cause status

== ENCOUNTER 2025-06-27 14:07 | Inpatient (IN) | payer MEDICARE, OTHER ==
[~2025-06-27] VITALS: Ht 152.4 cm; Wt 89.4 kg
[~2025-06-27 14:07] MED LIST changes: +ANORO ELLIPTA1 EACH INH; +ATORVASTATIN CA40 M1 PO; +BUDESONIDE-FO10.2 GM INH; +CEPHALEXIN500 M1 PO; +EXELON1 EAC1 TD; +INVEGA3 MG PO; +LISINOPRIL40 MG PO; +TRIAMCINOLONE430 GM TD; +VENT7GM INH
[2025-06-27 15:40] VITALS: BP 126/59
[2025-06-27] MEDS ORDERED: LORazepam 2 MG/ML VIAL IM PRN (16:25)
[2025-06-27] MEDS ORDERED: LORazepam 1 MG TAB PO PRN (16:25)
[2025-06-27] MEDS ORDERED: Water, Sterile 10 ML VIAL IM PRN (16:30)
[2025-06-27] MEDS ORDERED: hydrOXYzine hydrochloride 50 MG/ML VIAL IM PRN (16:45)
[2025-06-27] MEDS ORDERED: SODIUM CHLORIDE 0.9% 1,000 ML IV ONE (17:05)
[2025-06-27] MEDS ORDERED: DEXTROSE 50% 25 GM/50 ML VIAL IV PRN (17:05)
[2025-06-27] MEDS ORDERED: BUDESONIDE 0.5 MG AMP NEB SCH (17:15)
[2025-06-27] MEDS ORDERED: Albuterol Sulf/Ipratropium 3 ML VIAL NEB SCH (17:15)
[2025-06-27] MEDS ORDERED: ACETAMINOPHEN 325 MG TAB PO PRN (17:20)
[2025-06-27] MEDS ORDERED: Menthol/Zinc Oxide 4 GM THIN T PRN (17:25)
[2025-06-27] MEDS ORDERED: ATORVASTATIN CALCIUM 40 MG TABLET PO SCH (18:00)
[2025-06-27] MEDS ORDERED: Budesonide/Formoterol Fumarate 80/4.5 inhaler INH SCH (18:00)
[2025-06-27 20:00] VITALS: BP 153/64
[2025-06-27] MEDS ORDERED: Nitrofurantoin Monohydrate/N 100 MG CAP PO SCH (21:00)
[2025-06-27] MEDS ORDERED: Memantine Hydrochloride 5 MG TAB PO SCH (21:00)
[2025-06-27] MEDS ORDERED: Ciprofloxacin Hydrochloride 500 MG TAB PO SCH (21:00)
[2025-06-27] MEDS ORDERED: INSULIN LISPRO 1 UNIT/0.01 ML SQ SCH (22:00)
[2025-06-27] MEDS ORDERED: Paliperidone 3 MG TER PO SCH (22:00)
[2025-06-27] MEDS ORDERED: FLECAINIDE ACETATE 100 MG TAB PO SCH (22:00)
[2025-06-27] MEDS ORDERED: ZOLPIDEM TARTRATE 5 MG TAB PO SCH (22:00)
[2025-06-28 06:20] LABS: BASO # 0.1 10*3/uL (0.0-0.1); BASO % 0.6 % (0.0-1.0); EOS # 0.5 10*3/uL (0.0-0.4); EOS % 3.7 % (1.0-4.0); MEAN CELL VOLUME 93.7 fl (81.0-99.0); MEAN CORPUSCULAR HGB 28.1 pg (27.0-31.0); MEAN PLATELET VOLUME 11.5 fl (9.6-12.3); MONO # 1.0 10*3/uL (0.1-1.0); MONO % 8.4 % (3.0-9.0); NEUT # 8.6 10*3/uL (2.3-7.9); NEUT % 70.0 % (47.0-73.0); NUCLEATED RED BLOOD CELL 0.0 % (0.0-0.0); NUCLEATED RED BLOOD CELL 0.0 10*3/uL (0.0-0.0); PLATELET COUNT AUTOMATED 300 10*3/uL (130-400); RED CELL DISTRI WIDTH 14.5 % (0-14.5)
[2025-06-28 06:59] LABS: BUN 21 mg/dl (9-23); LDL CHOLESTEROL 69 mg/dL (9-159); SGPT/ALT 29 U/L (5-49)
[2025-06-28 07:39] LABS: VITAMIN D, 25-HYDROXY 68.0 ng/mL (30-100)
[2025-06-28 08:00] VITALS: BP 124/72
[2025-06-28] MEDS ORDERED: Rivastigmine Tartrate 9.5 MG/24 HR PATCH T SCH (09:00)
[2025-06-28] MEDS ORDERED: Pantoprazole Sodium 20 MG TAB PO SCH (10:00)
[2025-06-28] MEDS ORDERED: hydroCHLOROthiazide 25 MG TAB PO SCH (10:00)
[2025-06-28] MEDS ORDERED: ASPIRIN, CHEWABLE 81 MG TAB PO SCH (10:00)
[2025-06-28] MEDS ORDERED: LISINOPRIL 40 MG TAB PO SCH (10:00)
[2025-06-28 20:00] VITALS: BP 117/68
[2025-06-28] MEDS ORDERED: ATORVASTATIN CALCIUM 40 MG TABLET PO SCH (21:00)
[2025-06-29 08:00] VITALS: BP 143/50
[2025-06-29] MEDS ORDERED: Memantine Hydrochloride 5 MG TAB PO SCH (09:00)
[2025-06-29] MEDS ORDERED: BUDESONIDE 0.5 MG AMP NEB PRN (13:10)
[2025-06-29] MEDS ORDERED: Albuterol Sulf/Ipratropium 3 ML VIAL NEB PRN (13:10)
[2025-06-29 20:00] VITALS: BP 136/63
[2025-06-30 08:00] VITALS: BP 103/65
[2025-06-30] MEDS ORDERED: FLUCONAZOLE 100 MG TAB PO ONE (14:55)
[2025-06-30] MEDS ORDERED: SODIUM CHLORIDE Nasal 44 ml bottle NAS PRN (15:05)
[2025-06-30] MEDS ORDERED: FERROUS SULFATE 325 MG TAB PO SCH (15:10)
[2025-06-30] MEDS ORDERED: GLYCERIN NAS PRN (16:00)
[2025-06-30] MEDS ORDERED: ALOE VERA NAS PRN (16:00)
[2025-06-30 20:00] VITALS: BP 129/57
[2025-06-30] MEDS ORDERED: NYSTATIN 15 GM BOT T SCH (22:00)
[2025-07-01 01:01] VITALS: BP 152/78
[2025-07-01 03:03] LABS: BASO # 0.1 10*3/uL (0.0-0.1); BASO % 0.7 % (0.0-1.0); EOS # 0.4 10*3/uL (0.0-0.4); EOS % 3.6 % (1.0-4.0); MEAN CELL VOLUME 92.3 fl (81.0-99.0); MEAN CORPUSCULAR HGB 28.1 pg (27.0-31.0); MEAN PLATELET VOLUME 11.6 fl (9.6-12.3); MONO # 0.9 10*3/uL (0.1-1.0); MONO % 7.3 % (3.0-9.0); NEUT # 8.1 10*3/uL (2.3-7.9); NEUT % 67.2 % (47.0-73.0); NUCLEATED RED BLOOD CELL 0.0 % (0.0-0.0); NUCLEATED RED BLOOD CELL 0.0 10*3/uL (0.0-0.0); PLATELET COUNT AUTOMATED 308 10*3/uL (130-400); RED CELL DISTRI WIDTH 14.0 % (0-14.5)
[2025-07-01 03:24] LABS: BUN 20 mg/dl (9-23); SGPT/ALT 21 U/L (5-49)
[2025-07-01] MEDS ORDERED: LORATADINE 10 MG TAB PO SCH (09:00)
[2025-07-01] MEDS ORDERED: Rivastigmine Tartrate 9.5 MG/24 HR PATCH T SCH (09:00)
[2025-07-01] MEDS ORDERED: MED. FROM HOME 1 EACH EA PO SCH (10:00)
[2025-07-01 15:27] LABS: BILIRUBIN Negative (Negative); BLOOD Negative (Negative); CLARITY Clear (Clear); COLOR Yellow (Yellow); KETONE Negative (Negative); LEUKO ESTERASE Negative (Negative); NITRITE Negative (Negative); PH 5.5 (4.5-8.0); SPECIFIC GRAVITY 1.015 (1.001-1.030); UROBILINOGEN 0.2 E.U./dl (0.0-1.0)
[2025-07-01 15:37] LABS: MUCOUS TRACE; WBC 0-2 wbc/hpf (0-5)
[2025-07-01 20:00] VITALS: BP 147/62
[2025-07-01] MEDS ORDERED: Paliperidone 6 MG TER PO SCH (21:00)
[2025-07-02 08:00] VITALS: BP 122/64
[2025-07-02 20:00] VITALS: BP 116/46
[2025-07-03 08:20] VITALS: BP 102/52
[2025-07-03 20:00] VITALS: BP 132/58
[2025-07-04 08:00] VITALS: BP 114/80
[2025-07-04 10:55] LABS: BASO # 0.1 10*3/uL (0.0-0.1); BASO % 0.6 % (0.0-1.0); EOS # 0.4 10*3/uL (0.0-0.4); EOS % 2.6 % (1.0-4.0); MEAN CELL VOLUME 93.5 fl (81.0-99.0); MEAN CORPUSCULAR HGB 28.4 pg (27.0-31.0); MEAN PLATELET VOLUME 11.5 fl (9.6-12.3); MONO # 1.2 10*3/uL (0.1-1.0); MONO % 9.1 % (3.0-9.0); NEUT # 9.7 10*3/uL (2.3-7.9); NEUT % 70.8 % (47.0-73.0); NUCLEATED RED BLOOD CELL 0.0 % (0.0-0.0); NUCLEATED RED BLOOD CELL 0.0 10*3/uL (0.0-0.0); PLATELET COUNT AUTOMATED 300 10*3/uL (130-400); RED CELL DISTRI WIDTH 14.4 % (0-14.5)
[2025-07-04 11:26] LABS: BUN 35.0 mg/dl (9-23); SGPT/ALT 11.0 U/L (5-49)
[2025-07-04 17:37] LABS: BILIRUBIN Negative (Negative); BLOOD Negative (Negative); CLARITY Cloudy (Clear); COLOR Yellow (Yellow); KETONE Trace (Negative); LEUKO ESTERASE Negative (Negative); NITRITE Negative (Negative); PH 5.0 (4.5-8.0); SPECIFIC GRAVITY 1.020 (1.001-1.030); UROBILINOGEN 0.2 E.U./dl (0.0-1.0)
[2025-07-04 18:21] LABS: BACTERIA 2+; EPITHELIAL CELLS 21-30; WBC 0-2 wbc/hpf (0-5)
[2025-07-04 20:00] VITALS: BP 154/68
[2025-07-05 08:00] VITALS: BP 115/53
[2025-07-05 20:00] VITALS: BP 134/59
[2025-07-06 08:00] VITALS: BP 110/52
[2025-07-06 08:39] LABS: BILIRUBIN Negative (Negative); BLOOD Negative (Negative); CLARITY Cloudy (Clear); COLOR Yellow (Yellow); KETONE Negative (Negative); LEUKO ESTERASE Negative (Negative); NITRITE Negative (Negative); PH 5.5 (4.5-8.0); SPECIFIC GRAVITY 1.015 (1.001-1.030); UROBILINOGEN 0.2 E.U./dl (0.0-1.0)
[2025-07-06 08:51] LABS: BACTERIA 1+; RBC 0-2 rbc/hpf (0-2); WBC 0-2 wbc/hpf (0-5)
[2025-07-06] MEDS ORDERED: RIVASTIGMINE 13.3 MG/24 HR TDM T SCH (09:00)
[2025-07-06 20:00] VITALS: BP 134/78
[2025-07-07 08:27] VITALS: BP 145/80
[2025-07-07] MEDS ORDERED: MASON NATURAL325 MG PO (11:33)
[2025-07-07 20:00] VITALS: BP 136/50
[2025-07-08 20:00] VITALS: BP 136/55
[2025-07-09 08:00] VITALS: BP 126/96
[2025-07-09 08:31] LABS: BASO # 0.1 10*3/uL (0.0-0.1); BASO % 0.9 % (0.0-1.0); EOS # 0.4 10*3/uL (0.0-0.4); EOS % 3.6 % (1.0-4.0); MEAN CELL VOLUME 93.6 fl (81.0-99.0); MEAN CORPUSCULAR HGB 28.0 pg (27.0-31.0); MEAN PLATELET VOLUME 11.5 fl (9.6-12.3); MONO # 0.7 10*3/uL (0.1-1.0); MONO % 7.3 % (3.0-9.0); NEUT # 7.0 10*3/uL (2.3-7.9); NEUT % 69.1 % (47.0-73.0); NUCLEATED RED BLOOD CELL 0.0 % (0.0-0.0); NUCLEATED RED BLOOD CELL 0.0 10*3/uL (0.0-0.0); PLATELET COUNT AUTOMATED 359 10*3/uL (130-400); RED CELL DISTRI WIDTH 14.0 % (0-14.5)
[2025-07-09 09:17] LABS: BUN 20 mg/dl (9-23); SGPT/ALT 8 U/L (5-49)
[2025-07-09] MEDS ORDERED: MEMANTINE HCL10 MG PO (12:21)
[2025-07-09] MEDS ORDERED: PALIPERIDONE ER6 MG PO (12:21)
[2025-07-09] MEDS ORDERED: TRAZODONE100 MG PO (12:21)
[2025-07-09] MEDS ORDERED: RIVASTIGMINE1 EAC2 T (12:21)
== END 2025-07-09 14:07 | disposition home or self-care (01) | DRG 885 ==
LOC: 3N 14:07
PROVIDERS: Counselor Professional; Registered Nurse; Student in an Organized Health Care Education/Training Program; ADMIT Psychiatry & Neurology Psychiatry; ATTEND Psychiatry & Neurology Psychiatry
PROC: GZHZZZZ Group Psychotherapy (ICD-10-PCS; principal; 2025-06-28)
PROC: GZ56ZZZ Individual Psychotherapy, Supportive (ICD-10-PCS; 2025-06-28)
DX: F33.3 Major depressive disorder, recurrent, severe with psychotic symptoms (principal); F05 Delirium due to known physiological condition; E11.65 Type 2 diabetes mellitus with hyperglycemia; E44.0 Moderate protein-calorie malnutrition; F03.94 Unspecified dementia, unspecified severity, with anxiety; F03.93 Unspecified dementia, unspecified severity, with mood disturbance; K21.9 Gastro-esophageal reflux disease without esophagitis; J44.9 Chronic obstructive pulmonary disease, unspecified; I10 Essential (primary) hypertension; E78.5 Hyperlipidemia, unspecified; D72.829 Elevated white blood cell count, unspecified; R32 Unspecified urinary incontinence; G47.00 Insomnia, unspecified; J34.89 Other specified disorders of nose and nasal sinuses; D64.9 Anemia, unspecified; M79.7 Fibromyalgia; Z96.653 Presence of artificial knee joint, bilateral; Z90.49 Acquired absence of other specified parts of digestive tract; Z90.710 Acquired absence of both cervix and uterus; Z87.891 Personal history of nicotine dependence; Z98.891 History of uterine scar from previous surgery; Z82.3 Family history of stroke; Z82.49 Family history of ischemic heart disease and other diseases of the circulatory system; Z88.6 Allergy status to analgesic agent; Z88.8 Allergy status to other drugs, medicaments and biological substances; Z88.1 Allergy status to other antibiotic agents; Z79.4 Long term (current) use of insulin; Z91.048 Other nonmedicinal substance allergy status; Z87.440 Personal history of urinary (tract) infections; Z91.09 Other allergy status, other than to drugs and biological substances; Z79.899 Other long term (current) drug therapy; Z79.01 Long term (current) use of anticoagulants; Z79.2 Long term (current) use of antibiotics